=== PATIENT | female | born 1990 | race Caucasian/White ===

== ENCOUNTER 2021-01-21 14:17 | Outpatient (REF) | payer OTHER, SELFPAY ==
[2021-01-21 15:37] LABS: Amphetamine Screen Urine Not Detected (Not Detect); Barbiturates, Urine Not Detected (Not Detect); Benzodiazepines Screen Urine Not Detected (Not Detect); Cannabinoid Screen Urine Not Detected (Not Detect); Cocaine Screen Urine Not Detected (Not Detect); Opiate Screen Urine Not Detected (Not Detect); Phencyclidine Screen Urine Not Detected (Not Detect)
[2021-01-25 08:21] LABS: Codeine, Ur NEGATIVE
[2021-01-25 08:22] LABS: Hydrocodone, Ur NEGATIVE; Hydromorphone, Ur NEGATIVE; Morphine, Ur NEGATIVE; Norhydrocodone, Ur NEGATIVE; Noroxycodone, Ur NEGATIVE; Oxycodone, Ur NEGATIVE; Oxymorphone, Ur NEGATIVE
== END 2021-01-21 14:18 | disposition home or self-care (01) ==
LOC: HO.LAB 14:17
PROVIDERS: PCP Physician Assistant; Visit Provider Physician Assistant
DX: Z02.83 Encounter for blood-alcohol and blood-drug test (principal)
CPT/HCPCS: 80307; 80364; 80365

== ENCOUNTER 2021-01-28 15:37 | Outpatient (REF) | payer OTHER, SELFPAY ==
[2021-01-28 17:04] LABS: Amphetamine Screen Urine Not Detected (Not Detect); Barbiturates, Urine Not Detected (Not Detect); Benzodiazepines Screen Urine Not Detected (Not Detect); Cannabinoid Screen Urine Not Detected (Not Detect); Cocaine Screen Urine Not Detected (Not Detect); Opiate Screen Urine Not Detected (Not Detect); Phencyclidine Screen Urine Not Detected (Not Detect)
== END 2021-01-28 15:38 | disposition home or self-care (01) ==
LOC: HO.LAB 15:37
PROVIDERS: PCP Physician Assistant; Visit Provider Physician Assistant
DX: F11.20 Opioid dependence, uncomplicated (principal); L02.214 Cutaneous abscess of groin; Z13.29 Encounter for screening for other suspected endocrine disorder
CPT/HCPCS: 80307

== ENCOUNTER 2021-11-07 15:56 | Outpatient (REF) | payer OTHER, SELFPAY ==
[2021-11-07 16:21] LABS: MANUAL DIFF FLAG NO
[2021-11-07 16:52] LABS: Basophils Percent Auto 0.3 % (0-2); Eosinophils Absolute Auto 0.3 X10*3/uL (0.0-0.4); Eosinophils Percent Auto 4.6 % (0-4); Hematocrit 35.5 % (37.0-47.0); Hemoglobin 11.6 g/dl (12.0-16.0); Imm Gran Abs Auto 0.02 X10*3/uL (0.00-0.03); Imm Gran Pct Auto 0.3 % (0.0-0.4); Lymphocytes Absolute Auto 2.6 X10*3/uL (1.2-4.9); Lymphocytes Percent Auto 37.2 % (20-40); Mean Corpuscular HGB Conc 32.7 g/dl (31.0-35.0); Mean Corpuscular Hemoglobin 26.7 pg (27.0-33.0); Mean Corpuscular Volume 81.8 fL (80.0-98.0); Mean Platelet Volume 10.8 fL (9.4-12.3); Monocytes Absolute Auto 0.6 X10*3/uL (0.1-1.2); Monocytes Percent Auto 9.2 % (2-11); Neutrophils Absolute Auto 3.4 x10*3/uL (2.0-8.3); Neutrophils Percent Auto 48.4 % (45-73); Platelet Count 193 X10*3/uL (160-400); Red Blood Count 4.34 X10*6/uL (4.20-5.50); Red Cell Distribution Width 14.3 % (11.0-16.0); White Blood Count 6.9 X10*3/uL (4.8-10.8)
[2021-11-07 17:21] LABS: Anion Gap 12 (12-20); Blood Urea Nitrogen 14 mg/dL (9-16); Calcium 9.5 mg/dL (8.4-10.2); Carbon Dioxide 26 mmol/L (22-29); Chloride 104 mmol/L (96-108); Estimated Glomerular Filt Rate > 60; Glucose Random 77 mg/dL (60-115); Potassium 4.4 mmol/L (3.3-5.1); Sodium 138 mmol/L (135-145)
[2021-11-07 17:44] LABS: TSH reflex Free T4 2.09 uIU/mL (0.32-4.0)
[2021-11-07 17:50] LABS: Amphetamine Screen Urine Not Detected (Not Detect); Barbiturates, Urine Not Detected (Not Detect); Benzodiazepines Screen Urine Not Detected (Not Detect); Cannabinoid Screen Urine Not Detected (Not Detect); Cocaine Screen Urine Not Detected (Not Detect); Fentanyl, urine POSITIVE (Not Detect); Opiate Screen Urine Not Detected (Not Detect); Phencyclidine Screen Urine Not Detected (Not Detect)
== END 2021-11-07 15:57 | disposition home or self-care (01) ==
LOC: HO.LAB 15:56
PROVIDERS: PCP Physician Assistant; Visit Provider Physician Assistant
DX: Z13.29 Encounter for screening for other suspected endocrine disorder (principal); L02.214 Cutaneous abscess of groin; F11.20 Opioid dependence, uncomplicated
CPT/HCPCS: 80048; 80307; 84443; 85025

== ENCOUNTER 2021-11-24 16:55 | Outpatient (REF) | payer OTHER, SELFPAY ==
[2021-12-01 08:07] LABS: Codeine, Ur NEGATIVE; Hydrocodone, Ur NEGATIVE; Hydromorphone, Ur NEGATIVE; Morphine, Ur NEGATIVE; Norhydrocodone, Ur NEGATIVE; Noroxycodone, Ur NEGATIVE; Oxycodone, Ur NEGATIVE; Oxymorphone, Ur NEGATIVE
== END 2021-11-24 16:56 | disposition home or self-care (01) ==
LOC: HO.LAB 16:55
PROVIDERS: PCP Physician Assistant; Visit Provider Physician Assistant
DX: F11.20 Opioid dependence, uncomplicated (principal)
CPT/HCPCS: 80364; 80365

== ENCOUNTER 2021-12-01 16:49 | Outpatient (REF) | payer OTHER, SELFPAY ==
[2021-12-01 18:13] LABS: Lipase 22 U/L (8-78)
[2021-12-06 13:56] LABS: Transglutaminase Ab IgG <1.0 U/mL; Transglutaminase IgA <1.0 U/mL
[2021-12-07 07:40] LABS: Codeine, Ur NEGATIVE; Hydrocodone, Ur NEGATIVE; Hydromorphone, Ur NEGATIVE; Morphine, Ur NEGATIVE; Norhydrocodone, Ur NEGATIVE; Noroxycodone, Ur NEGATIVE; Oxycodone, Ur NEGATIVE; Oxymorphone, Ur NEGATIVE
== END 2021-12-01 16:50 | disposition home or self-care (01) ==
LOC: HO.LAB 16:49
PROVIDERS: PCP Physician Assistant; Visit Provider Physician Assistant
DX: F11.20 Opioid dependence, uncomplicated (principal); R14.0 Abdominal distension (gaseous)
CPT/HCPCS: 80364; 80365; 83690; 86364

== ENCOUNTER 2021-12-12 08:24 | Outpatient (REF) | payer OTHER, SELFPAY ==
--- NOTE | ~2021-12-12 | US_ITS ---
EXAMINATION: US ABDOMEN COMPLETE CLINICAL INFORMATION: Abdominal distention. Right upper quadrant intermittent pain. Rule out gallstones. COMPARISON: None TECHNIQUE: Real-time imaging of the abdominal viscera. FINDINGS: PANCREAS: Visualized portions of the pancreas are unremarkable. The pancreatic tail is obscured by bowel gas. ABDOMINAL AORTA: The proximal, mid, and distal segments are normal in caliber. INFERIOR VENA CAVA: Visualized portions are normal. LIVER: The liver is normal in size. The liver contour is normal. Parenchymal echogenicity is normal. No focal hepatic lesion. There is no intrahepatic biliary duct dilatation seen. GALLBLADDER: Normal. The gallbladder is physiologically distended without evidence of stones, sludge, polyps, wall thickening or pericholecystic fluid. COMMON BILE DUCT: Normal in caliber measuring 0.3 cm in diameter. RIGHT KIDNEY: Normal. No hydronephrosis. No renal calculi or focal parenchymal lesions. The kidney measures 11.8 cm in maximum dimension. LEFT KIDNEY: Normal. No hydronephrosis. No renal calculi or focal parenchymal lesions. The kidney measures 10.9 cm in maximum dimension. SPLEEN: Spleen is mildly enlarged. The spleen measures 13.2 cm in maximum dimension. FREE FLUID: None. US/US abdomen complete IMPRESSION: No cholelithiasis or evidence of acute cholecystitis. Mild splenomegaly.
== END 2021-12-12 08:25 | disposition home or self-care (01) ==
LOC: HO.US 08:24
PROVIDERS: Visit Provider Physician Assistant
DX: R10.11 Right upper quadrant pain (principal); R14.0 Abdominal distension (gaseous)
CPT/HCPCS: 76700

== ENCOUNTER 2022-01-26 16:59 | Outpatient (REF) | payer OTHER, SELFPAY ==
[2022-01-26 17:49] LABS: Hematocrit 41.6 % (37.0-47.0); Hemoglobin 13.7 g/dl (12.0-16.0); Mean Corpuscular HGB Conc 32.9 g/dl (31.0-35.0); Mean Corpuscular Volume 81.9 fL (80.0-98.0); Mean Platelet Volume 10.6 fL (9.4-12.3); Platelet Count 199 X10*3/uL (160-400); Red Blood Count 5.08 X10*6/uL (4.20-5.50); Red Cell Distribution Width 14.4 % (11.0-16.0); White Blood Count 8.8 X10*3/uL (4.8-10.8)
[2022-02-01 07:49] LABS: Codeine, Ur NEGATIVE; Hydrocodone, Ur NEGATIVE; Hydromorphone, Ur NEGATIVE; Morphine, Ur NEGATIVE; Norhydrocodone, Ur NEGATIVE; Noroxycodone, Ur NEGATIVE; Oxycodone, Ur NEGATIVE; Oxymorphone, Ur NEGATIVE
== END 2022-01-26 17:00 | disposition home or self-care (01) ==
LOC: HO.LAB 16:59
PROVIDERS: PCP Physician Assistant; Visit Provider Physician Assistant
DX: A49.02 Methicillin resistant Staphylococcus aureus infection, unspecified site (principal)
CPT/HCPCS: 80364; 80365; 85027

== ENCOUNTER 2022-03-09 17:21 | Outpatient (REF) | payer OTHER, SELFPAY | END 2022-03-09 17:22 | disposition home or self-care (01) | LOC: HO.XRAY 17:21 | PROVIDERS: PCP Physician Assistant; Visit Provider Physician Assistant | DX: Z13.89 Encounter for screening for other disorder (principal) ==

== ENCOUNTER 2022-10-19 15:18 | Emergency (ER) | payer OTHER, SELFPAY ==
--- NOTE | ~2022-10-19 | US_ITS ---
EXAMINATION: US VENOUS ULTRASOUND WITH DOPPLER LOWER EXTREMITY, LEFT CLINICAL INFORMATION: Left leg pain. COMPARISON: None available. TECHNIQUE: Ultrasound of the deep veins is performed from the hip to the calf with compression sonography and color and pulse Doppler assessment. Spectral analysis with color-flow imaging is performed. FINDINGS: There is normal venous compression and respiratory variation and augmented flow. The visualized common femoral vein, superficial femoral vein, profunda femoral vein, popliteal vein, and the trifurcation region shows no evidence of deep venous thrombosis. There is no significant popliteal fossa cyst. If the patient's symptoms persist, followup ultrasound in 5 days 7 days might be of value to exclude proximal propagation from a non-visualized calf vein. US/US venous duplex LE IMPRESSION: No DVT demonstrated in the left lower extremity.
--- NOTE | 2022-10-19 15:21 | ECG_ITS ---
Test Reason : chest pain Blood Pressure : / mmHG Vent. Rate : 086 BPM Atrial Rate : 086 BPM P-R Int : 170 ms QRS Dur : 090 ms QT Int : 374 ms P-R-T Axes : 037 -01 024 degrees QTc Int : 447 ms Normal sinus rhythm Normal ECG When compared with ECG of 18-JUL-2018 14:02, No significant change was found Referred By: Generic ED Physician Electronically Signed By:BREANNA GALINDO MD
[2022-10-19 15:28] VITALS: BP 160/110; PULSE 108; O2SAT 98
[2022-10-19 15:41] VITALS: BP 155/66; PULSE 74; RESP 16; TEMP 36.9; O2SAT 97; BMI 33.4
--- NOTE | 2022-10-19 15:49 | ED_ITS ---
HPI - Chest Pain General Chief Complaint: Chest Pain Stated Complaint: L SIDED CP PER EMS Related Data Home Medications Medication Instructions Recorded Confirmed methadone 40 mg soluble tablet 60 mg PO DAILY 12/01/21 12/29/21 Previous Rx's Medication Instructions Recorded ibuprofen 600 mg tablet 600 mg PO TID #90 tabs 08/20/21 nicotine 14 mg/24 hr daily 1 patch transdermal DAILY 28 days 11/21/21 transdermal patch #28 ea lisdexamfetamine 60 mg capsule 60 mg PO DAILY 28 days #28 caps 01/24/22 (Vyvanse) miconazole nitrate 100 mg vaginal 100 mg vaginal BEDTIME 7 days #7 ea 02/10/22 suppository (Miconazole-7) sulfamethoxazole 800 1 tab PO Q12H 10 days #20 tabs 05/09/22 mg-trimethoprim 160 mg tablet (Bactrim DS) mupirocin 2 % topical ointment 1 appl topical BID 15 days #22 09/07/22 grams sulfamethoxazole 800 1 tab PO Q12H 14 days #28 tabs 11/22/22 mg-trimethoprim 160 mg tablet (Bactrim DS) varenicline 0.5 mg tablet 0.5 mg PO .COMPLEX 7 days #11 tabs 03/14/23 varenicline 1 mg tablet 1 mg PO BID 28 days #56 tabs 03/14/23 Allergies Allergy/AdvReac Type Severity Reaction Status Date / Time Seasonal Allergies Allergy Mild Nasal Verified 10/19/22 15:45 congestion atomoxetine [From Strattera] AdvReac Intermediate headaches Verified 10/19/22 15:45 PMFSH Past Medical History Surgical History No pertinent past surgical history Family History Family History Father Hypertension Psoriasis Obese Melanoma Mother Hypertension Obese Heart disease Diabetes COPD (chronic obstructive pulmonary disease) Social History Social History Housing: House Alcohol intake: unknown Patient Tobacco Use Status: Former Tobacco user Quit Date: 2021 Tobacco use type: Cigarette e-Cigarette/Vaping Use: Never Used Second Hand Smoke Exposure: No service: No Current occupational status: employed 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 Also complains of ?fatigue and vomiting. Patient appears quite anxious but states that she has no history of anxiety. Plan for labs, EKG, chest x-ray, and ultrasound of the left lower extremity to rule out DVT Medical Decision Making Lab Data 10/19/22 16:09 10/19/22 16:09 Labs: Lab Results 10/19/22 10/19/22 10/19/22 Range/Units 15:53 16:08 16:09 WBC 7.5 (4.8-10.8) X10*3/uL RBC 4.77 (4.20-5.50) X10*6/uL Hgb 13.1 (12.0-16.0) g/dl Hct 38.4 (37.0-47.0) % MCV 80.5 (80.0-98.0) fL MCH 27.5 (27.0-33.0) pg MCHC 34.1 (31.0-35.0) g/dl RDW 14.2 (11.0-16.0) % Plt Count 219 (160-400) X10*3/uL MPV 10.5 (9.4-12.3) fL Immature Gran % (Auto) 0.1 (0.0-0.4) % Neut % (Auto) 50.1 (45-73) % Lymph % (Auto) 39.5 (20-40) % [place] % (Auto) 8.0 (2-11) % Eos % (Auto) 2.0 (0-4) % Baso % (Auto) 0.3 (0-2) % Lymph # (Auto) 3.0 (1.2-4.9) X10*3/uL [place] # (Auto) 0.6 (0.1-1.2) X10*3/uL Eos # (Auto) 0.2 (0.0-0.4) X10*3/uL Baso # (Auto) 0.0 (0.0-0.2) X10*3/uL Abs Immat Gran (auto) 0.01 (0.00-0.03) X10*3/uL Absolute Neuts (auto) 3.8 (2.0-8.3) x10*3/uL Absolute Nucleated RBC 0.000 (0.0-0.012) X10*3/uL Nucleated RBC % (auto) 0.0 (0.0-0.2) /100WBC D-Dimer High Sensitivty Cancelled Sodium 139 (135-145) mmol/L Potassium 3.8 (3.3-5.1) mmol/L Chloride 107 (96-108) mmol/L Carbon Dioxide 23 (22-29) mmol/L Anion Gap 13 (12-20) BUN 13 (9-16) mg/dL Creatinine 0.64 (0.5-1.4) mg/dL Estim Creat Clear Calc 157.3 Estimated GFR > 60 Random Glucose 87 (60-115) mg/dL Calcium 9.2 (8.4-10.2) mg/dL Magnesium 2.2 (1.6-2.6) mg/dL Total Bilirubin 0.2 (0.0-1.0) mg/dL AST 22 (5-31) U/L ALT 25 (0-31) U/L Alkaline Phosphatase 117 (39-117) U/L Troponin I High Sens < 3.5 (<3.5-17.0) ng/L Total Protein 8.2 H (6.5-8.0) g/dL Albumin 4.4 (3.5-5.0) g/dL Lipase 15 (8-78) U/L Beta HCG, Quant < 2 mIU/mL Urine Opiates Screen Not Detected (Not Detect) Urine Fentanyl Screen Not Detected (Not Detect) Ur Barbiturates Screen Not Detected (Not Detect) Ur Phencyclidine Scrn Not Detected (Not Detect) Ur Amphetamines Screen Not Detected (Not Detect) U Benzodiazepines Scrn Not Detected (Not Detect) Urine Cocaine Screen Not Detected (Not Detect) U Marijuana (THC) Screen Not Detected (Not Detect) Discharge Plan Discharge Clinical Impression: Chest pain Patient Disposition: Elopement Prescriptions: No Action ibuprofen 600 mg tablet 600 mg PO TID Qty: 90 1RF nicotine 14 mg/24 hr patch 24 hour 1 patch transdermal DAILY 28 Days Qty: 28 0RF Vyvanse 60 mg capsule 60 mg PO DAILY 28 Days Qty: 28 0RF Rx Instructions: Increased dose to 60 mg miconazole nitrate [Miconazole-7] 100 mg suppository 100 mg vaginal BEDTIME 7 Days Qty: 7 0RF sulfamethoxazole-trimethoprim [Bactrim DS] 800-160 mg tablet 1 tab PO Q12H 10 Days Qty: 20 0RF mupirocin 2 % ointment 1 appl topical BID 15 Days Qty: 22 0RF sulfamethoxazole-trimethoprim [Bactrim DS] 800-160 mg tablet 1 tab PO Q12H 14 Days Qty: 28 0RF varenicline 0.5 mg tablet 0.5 mg PO .COMPLEX 7 Days Qty: 11 0RF Rx Instructions: 0.5 mg PO; Take 0.5 mg qd x 3 days, then 0.5 mg b.i.d. x4 days varenicline 1 mg tablet 1 mg PO BID 28 Days Qty: 56 3RF methadone 40 mg tablet,soluble 60 mg PO DAILY Interventions: ED Discharge Assessment Last Done: 10/19/22 19:41 Discharge Date/Time: 10/19/22 19:41
[2022-10-19 16:13] LABS: MANUAL DIFF FLAG NO
[2022-10-19 16:17] LABS: Basophils Percent Auto 0.3 % (0-2); Eosinophils Absolute Auto 0.2 X10*3/uL (0.0-0.4); Hematocrit 38.4 % (37.0-47.0); Hemoglobin 13.1 g/dl (12.0-16.0); Imm Gran Abs Auto 0.01 X10*3/uL (0.00-0.03); Imm Gran Pct Auto 0.1 % (0.0-0.4); Lymphocytes Percent Auto 39.5 % (20-40); Mean Corpuscular HGB Conc 34.1 g/dl (31.0-35.0); Mean Corpuscular Hemoglobin 27.5 pg (27.0-33.0); Mean Corpuscular Volume 80.5 fL (80.0-98.0); Mean Platelet Volume 10.5 fL (9.4-12.3); Monocytes Absolute Auto 0.6 X10*3/uL (0.1-1.2); Neutrophils Absolute Auto 3.8 x10*3/uL (2.0-8.3); Neutrophils Percent Auto 50.1 % (45-73); Platelet Count 219 X10*3/uL (160-400); Red Blood Count 4.77 X10*6/uL (4.20-5.50); Red Cell Distribution Width 14.2 % (11.0-16.0); White Blood Count 7.5 X10*3/uL (4.8-10.8)
[2022-10-19 16:29] LABS: Amphetamine Screen Urine Not Detected (Not Detect); Barbiturates, Urine Not Detected (Not Detect); Benzodiazepines Screen Urine Not Detected (Not Detect); Cannabinoid Screen Urine Not Detected (Not Detect); Cocaine Screen Urine Not Detected (Not Detect); Fentanyl, urine Not Detected (Not Detect); Opiate Screen Urine Not Detected (Not Detect); Phencyclidine Screen Urine Not Detected (Not Detect)
[2022-10-19 16:39] LABS: Alanine Aminotransferase 25 U/L (0-31); Albumin Level 4.4 g/dL (3.5-5.0); Alkaline Phosphatase 117 U/L (39-117); Anion Gap 13 (12-20); Aspartate Amino Transferase 22 U/L (5-31); Bilirubin Total 0.2 mg/dL (0.0-1.0); Blood Urea Nitrogen 13 mg/dL (9-16); Calcium 9.2 mg/dL (8.4-10.2); Carbon Dioxide 23 mmol/L (22-29); Chloride 107 mmol/L (96-108); Creatinine Clr Calc Pharmacy 157.3; Estimated Glomerular Filt Rate > 60; Glucose Random 87 mg/dL (60-115); Lipase 15 U/L (8-78); Magnesium 2.2 mg/dL (1.6-2.6); Potassium 3.8 mmol/L (3.3-5.1); Sodium 139 mmol/L (135-145); Total Protein 8.2 g/dL (6.5-8.0)
[2022-10-19 16:56] LABS: HCG Quantitative < 2 mIU/mL; Troponin-I High Sensitivity < 3.5 ng/L (<3.5-17.0)
== END 2022-10-19 19:41 | disposition left against medical advice (07) ==
PROVIDERS: Physician Assistant; Emergency Provider Emergency Medicine
DX: R07.9 Chest pain, unspecified (principal); R06.02 Shortness of breath; M79.605 Pain in left leg; F41.9 Anxiety disorder, unspecified; F11.20 Opioid dependence, uncomplicated; Z87.891 Personal history of nicotine dependence; Z79.899 Other long term (current) drug therapy
CPT/HCPCS: 36415; 80053; 80307; 83690; 83735; 84484; 84702; 85025; 93005; 93971; 99283; 99284

== ENCOUNTER 2022-12-01 00:22 | Emergency (ER) | payer OTHER, SELFPAY ==
--- NOTE | ~2022-12-01 | CT_ITS ---
EXAMINATION: NONCONTRAST HEAD CT NONCONTRAST CERVICAL SPINE CT INDICATION INFORMATION: Fall, head injury COMPARISON: None TECHNIQUE: Separate noncontrast CT examinations of the head and cervical spine were performed. Coronal head CT images and coronal and sagittal cervical spine images were created at the technologist workstation. DLP: 1378 mGy-cm DOSE LOWERING TECHNIQUES: This CT examination was performed using dose optimization techniques as appropriate, variously including the following: - Automated exposure control - Adjustment of mA and/or kV according to patient size (this includes techniques or standardized protocols for targeted exams were dose is matched to indication/reason for exam; i.e. extremities or head) - Use of iterative reconstruction technique FINDINGS: Head: There is no evidence of acute intracranial hemorrhage or territorial infarction. No abnormal mass-effect or midline shift is seen. Peoples to white matter differentiation is well preserved. No extra-axial fluid collections are identified. The ventricles are normal in size. There is no abnormal attenuation within the brain parenchyma. The osseous structures and soft tissues are normal. The mastoid air cells and visualized portions of the paranasal sinuses are well-aerated. Cervical spine: There is anatomic alignment of the vertebral bodies and posterior elements. Vertebral body heights are maintained. Intervertebral disc spaces are preserved. No evidence of acute fracture. No prevertebral soft tissue swelling. Visualized portions of the lung apices are unremarkable. The thyroid gland is unremarkable. CT/CT head/brain wo IV con IMPRESSION: No acute findings identified in the head or cervical spine.
--- NOTE | ~2022-12-01 | CT_ITS ---
EXAMINATION: NONCONTRAST HEAD CT NONCONTRAST CERVICAL SPINE CT INDICATION INFORMATION: Fall, head injury COMPARISON: None TECHNIQUE: Separate noncontrast CT examinations of the head and cervical spine were performed. Coronal head CT images and coronal and sagittal cervical spine images were created at the technologist workstation. DLP: 1378 mGy-cm DOSE LOWERING TECHNIQUES: This CT examination was performed using dose optimization techniques as appropriate, variously including the following: - Automated exposure control - Adjustment of mA and/or kV according to patient size (this includes techniques or standardized protocols for targeted exams were dose is matched to indication/reason for exam; i.e. extremities or head) - Use of iterative reconstruction technique FINDINGS: Head: There is no evidence of acute intracranial hemorrhage or territorial infarction. No abnormal mass-effect or midline shift is seen. Peoples to white matter differentiation is well preserved. No extra-axial fluid collections are identified. The ventricles are normal in size. There is no abnormal attenuation within the brain parenchyma. The osseous structures and soft tissues are normal. The mastoid air cells and visualized portions of the paranasal sinuses are well-aerated. Cervical spine: There is anatomic alignment of the vertebral bodies and posterior elements. Vertebral body heights are maintained. Intervertebral disc spaces are preserved. No evidence of acute fracture. No prevertebral soft tissue swelling. Visualized portions of the lung apices are unremarkable. The thyroid gland is unremarkable. CT/CT cervical spine wo IV con IMPRESSION: No acute findings identified in the head or cervical spine.
[2022-12-01 00:31] VITALS: BP 150/78; PULSE 84; O2SAT 95
[2022-12-01 00:32] VITALS: BMI 27.4
[2022-12-01 00:41] VITALS: BP 136/75; PULSE 74; RESP 18; TEMP 36.6; O2SAT 96
--- NOTE | 2022-12-01 00:45 | ECG_ITS ---
Test Reason : SYNCOPE Blood Pressure : / mmHG Vent. Rate : 065 BPM Atrial Rate : 065 BPM P-R Int : 188 ms QRS Dur : 086 ms QT Int : 420 ms P-R-T Axes : 009 -05 019 degrees QTc Int : 436 ms Normal sinus rhythm Minimal voltage criteria for LVH, may be normal variant ( R in aVL ) Borderline ECG When compared with ECG of 19-OCT-2022 15:37, No significant change was found Referred By: Miguel Rayo Electronically Signed By:BREANNA GALINDO MD
--- NOTE | 2022-12-01 00:49 | ED.SYNCOPE ---
HPI - Syncope General Chief Complaint: Headache Stated Complaint: syncope Time Seen by Provider: 12/01/22 00:44 Source: patient Mode of arrival: ambulatory Limitations: no limitations History of Present Illness HPI narrative: 32-year-old female presents to the emergency department after dozing off per the boyfriend EMS states she was cutting off and then it think that she passed out she did fall and hit her head. 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 She states she has seen multiple doctors and is currently on Bactrim for this. She denies chest pain fever nausea vomiting or diarrhea. Patient did vomit once upon arrival. Patient is tearful on arrival. She is alert oriented is concerned about her headache. She states she has a history of migraines for this different. MD complaint: loss of consciousness Related Data Home Medications Medication Instructions Recorded Confirmed methadone 40 mg soluble tablet 60 mg PO DAILY 12/01/21 12/29/21 Previous Rx's Medication Instructions Recorded ibuprofen 600 mg tablet 600 mg PO TID #90 tabs 08/20/21 nicotine 14 mg/24 hr daily 1 patch transdermal DAILY 28 days 11/21/21 transdermal patch #28 ea lisdexamfetamine 60 mg capsule 60 mg PO DAILY 28 days #28 caps 01/24/22 (Vyvanse) miconazole nitrate 100 mg vaginal 100 mg vaginal BEDTIME 7 days #7 ea 02/10/22 suppository (Miconazole-7) sulfamethoxazole 800 1 tab PO Q12H 10 days #20 tabs 05/09/22 mg-trimethoprim 160 mg tablet (Bactrim DS) mupirocin 2 % topical ointment 1 appl topical BID 15 days #22 09/07/22 grams sulfamethoxazole 800 1 tab PO Q12H 14 days #28 tabs 11/22/22 mg-trimethoprim 160 mg tablet (Bactrim DS) Allergies Allergy/AdvReac Type Severity Reaction Status Date / Time Seasonal Allergies Allergy Mild Nasal Verified 10/19/22 15:45 congestion atomoxetine [From Strattera] AdvReac Intermediate headaches Verified 10/19/22 15:45 Review of Systems Review of Systems: Review of systems: General: Patient denies any fever chills recent illness or falls Musculoskeletal: Denies back pain or body aches or other injuries HEENT: Headache denies, runny nose, ear pain Respiratory: denies shortness of breath, cough Cardiovascular: no chest pain or palpitations : denies dysuria, frequency Abdomen: no nausea vomiting denies abdominal pain Extremities: no swelling, no pain Skin: no diaphoresis Yes all other systems are reviewed and are negative PMFSH Past Medical History Surgical History No pertinent past surgical history Family History Family History Father Hypertension Psoriasis Obese Melanoma Mother Hypertension Obese Heart disease Diabetes COPD (chronic obstructive pulmonary disease) Social History Social History Housing: House Alcohol intake: unknown Patient Tobacco Use Status: Former Tobacco user Quit Date: 2021 Tobacco use type: Cigarette e-Cigarette/Vaping Use: Never Used Second Hand Smoke Exposure: No Use of substances other than those prescribed or required for medical reasons: Refusing to respond Advance Directives: No Advance Directives Information Provided: No Patient : No service: No Current occupational status: employed 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 Patient is alert and oriented to person place and time. Patient has no dysphagia or dysarthia, denies good vision in all four vision [place] no nystagmus on exam, good strength to upper and lower extremities with normal reflexes to brachioradialis, wrist, patella and achilles. Negative romberg, good finger to nose and heel to mercado. General: Well-appearing well-nourished in no signs of distress HEENT: Normocephalic atraumatic Neck: No signs of JVD, no masses no tenderness or lymphadenopathy Cardiovascular: Regular rate and rhythm Respiratory: Clear to auscultation bilaterally Abdomen: Soft nontender no masses Extremities: Normal pedal pulses no signs of edema Skin: Multiple healing abrasions verses abscesses to bilateral arms Dry warm no rashes Back: No tenderness full ROM Medical Decision Making Medical Decision Making [facility] Narrative: Since patient is on Bactrim she had syncopized is fairly young I will check her kidney function I patient for a CT scan head neck. Made sure if this patient just fell asleep as the story was that she was nodding off. She is alert oriented here is able ambulate to a CT scan and back to her room 0145 CT head and neck are negative. Patient was explained the results. She now relates a story of being sleepy for months. 3 years of abdominal bloating and constipation. She has a benign abdomen. Continues to have normal vitals but is very anxious. We have had a hard time getting blood work. We will continue with labs. 0234 Labs are all okay I will discharge home. Differential Diagnosis Differential Diagnoses: The differential diagnosis associated with the presentation includes Syncope versus opiate use versus dehydration verses Bactrim reaction to her kidneys. Admission/Observation Consideration of admission/observation: Escalation of care including admission/observation considered Lab Data [facility] Lab Attestation statement: I reviewed the patient's lab results. 12/01/22 01:47 12/01/22 01:47 Labs: Lab Results 12/01/22 12/01/22 Range/Units 01:47 01:47 WBC 11.2 H (4.8-10.8) X10*3/uL RBC 4.45 (4.20-5.50) X10*6/uL Hgb 12.0 (12.0-16.0) g/dl Hct 35.8 L (37.0-47.0) % MCV 80.4 (80.0-98.0) fL MCH 27.0 (27.0-33.0) pg MCHC 33.5 (31.0-35.0) g/dl RDW 13.5 (11.0-16.0) % Plt Count 277 D (160-400) X10*3/uL MPV 9.7 (9.4-12.3) fL Immature Gran % (Auto) 0.3 (0.0-0.4) % Neut % (Auto) 75.8 H (45-73) % Lymph % (Auto) 17.2 L (20-40) % [place] % (Auto) 5.7 (2-11) % Eos % (Auto) 0.6 (0-4) % Baso % (Auto) 0.4 (0-2) % Lymph # (Auto) 1.9 (1.2-4.9) X10*3/uL [place] # (Auto) 0.6 (0.1-1.2) X10*3/uL Eos # (Auto) 0.1 (0.0-0.4) X10*3/uL Baso # (Auto) 0.0 (0.0-0.2) X10*3/uL Abs Immat Gran (auto) 0.03 (0.00-0.03) X10*3/uL Absolute Neuts (auto) 8.5 H (2.0-8.3) x10*3/uL Absolute Nucleated RBC 0.000 (0.0-0.012) X10*3/uL Nucleated RBC % (auto) 0.0 (0.0-0.2) /100WBC Sodium 136 (135-145) mmol/L Potassium 4.3 (3.3-5.1) mmol/L Chloride 103 (96-108) mmol/L Carbon Dioxide 24 (22-29) mmol/L Anion Gap 13 (12-20) BUN 11 (9-16) mg/dL Creatinine 0.84 (0.5-1.4) mg/dL Estim Creat Clear Calc 108.7 Estimated GFR > 60 Random Glucose 101 (60-115) mg/dL Calcium 9.1 (8.4-10.2) mg/dL Total Bilirubin 0.3 (0.0-1.0) mg/dL Direct Bilirubin 0.1 (0.0-0.5) mg/dL AST 20 (5-31) U/L ALT 21 (0-31) U/L Alkaline Phosphatase 93 (39-117) U/L Total Protein 7.6 (6.5-8.0) g/dL Albumin 4.4 (3.5-5.0) g/dL Lipase 10 (8-78) U/L Independent Interpretation I performed an independent interpretation of an: EKG and CT Scan Interpretation: Rate 65 nsr normal intervals no signs of ischemia External Record Review External record reviewed: Inpatient record She was here a few weeks ago for chest pain she has no chest pain at this time she did not complete her workup and left against medical advice. Discharge Plan Discharge Clinical Impression: Headache, Syncope, Head injury, Fall, Postprandial bloating, Daytime somnolence Patient Disposition: Home, Self-Care Instructions: Syncope (DC), Head Injury (ED), Acute Headache (DC), Fall Prevention (ED) Additional Instructions: You were seen in the ER after a fall and head injury. You had a CT and labs done which were all normal Please call to follow up with your doctor. Prescriptions: No Action ibuprofen 600 mg tablet 600 mg PO TID Qty: 90 1RF nicotine 14 mg/24 hr patch 24 hour 1 patch transdermal DAILY 28 Days Qty: 28 0RF Vyvanse 60 mg capsule 60 mg PO DAILY 28 Days Qty: 28 0RF Rx Instructions: Increased dose to 60 mg miconazole nitrate [Miconazole-7] 100 mg suppository 100 mg vaginal BEDTIME 7 Days Qty: 7 0RF sulfamethoxazole-trimethoprim [Bactrim DS] 800-160 mg tablet 1 tab PO Q12H 10 Days Qty: 20 0RF mupirocin 2 % ointment 1 appl topical BID 15 Days Qty: 22 0RF sulfamethoxazole-trimethoprim [Bactrim DS] 800-160 mg tablet 1 tab PO Q12H 14 Days Qty: 28 0RF methadone 40 mg tablet,soluble 60 mg PO DAILY
[2022-12-01 01:53] LABS: Basophils Percent Auto 0.4 % (0-2); Eosinophils Absolute Auto 0.1 X10*3/uL (0.0-0.4); Eosinophils Percent Auto 0.6 % (0-4); Hematocrit 35.8 % (37.0-47.0); Imm Gran Abs Auto 0.03 X10*3/uL (0.00-0.03); Imm Gran Pct Auto 0.3 % (0.0-0.4); Lymphocytes Absolute Auto 1.9 X10*3/uL (1.2-4.9); Lymphocytes Percent Auto 17.2 % (20-40); MANUAL DIFF FLAG NO; Mean Corpuscular HGB Conc 33.5 g/dl (31.0-35.0); Mean Corpuscular Volume 80.4 fL (80.0-98.0); Mean Platelet Volume 9.7 fL (9.4-12.3); Monocytes Absolute Auto 0.6 X10*3/uL (0.1-1.2); Monocytes Percent Auto 5.7 % (2-11); Neutrophils Absolute Auto 8.5 x10*3/uL (2.0-8.3); Neutrophils Percent Auto 75.8 % (45-73); Platelet Count 277 X10*3/uL (160-400); Red Blood Count 4.45 X10*6/uL (4.20-5.50); Red Cell Distribution Width 13.5 % (11.0-16.0); White Blood Count 11.2 X10*3/uL (4.8-10.8)
[2022-12-01 02:00] VITALS: BP 136/76; PULSE 72; RESP 18; TEMP 36.4; O2SAT 96
[2022-12-01 02:23] LABS: Alanine Aminotransferase 21 U/L (0-31); Albumin Level 4.4 g/dL (3.5-5.0); Alkaline Phosphatase 93 U/L (39-117); Anion Gap 13 (12-20); Aspartate Amino Transferase 20 U/L (5-31); Bilirubin Direct 0.1 mg/dL (0.0-0.5); Bilirubin Total 0.3 mg/dL (0.0-1.0); Blood Urea Nitrogen 11 mg/dL (9-16); Calcium 9.1 mg/dL (8.4-10.2); Carbon Dioxide 24 mmol/L (22-29); Chloride 103 mmol/L (96-108); Creatinine Clr Calc Pharmacy 108.7; Estimated Glomerular Filt Rate > 60; Glucose Random 101 mg/dL (60-115); Lipase 10 U/L (8-78); Potassium 4.3 mmol/L (3.3-5.1); Sodium 136 mmol/L (135-145); Total Protein 7.6 g/dL (6.5-8.0)
== END 2022-12-01 02:44 | disposition home or self-care (01) ==
PROVIDERS: Emergency Provider Student in an Organized Health Care Education/Training Program; PCP Physician Assistant
DX: R55 Syncope and collapse (principal); R51.9 Headache, unspecified; R40.0 Somnolence; M54.2 Cervicalgia; Z87.891 Personal history of nicotine dependence
CPT/HCPCS: 36415; 70450; 72125; 80048; 80076; 83690; 85025; 93005; 99284

== ENCOUNTER 2023-11-12 11:59 | Outpatient (AMB) | payer OTHER, SELFPAY ==
[2023-11-12 12:42] VITALS: BP 130/80; PULSE 79; TEMP 36.4; O2SAT 98
--- NOTE | 2023-11-12 12:42 | MHC.OFFWIV ---
Intake Vital Signs 11/12/23 12:42 Height 5 ft 8 in BP 130/80 Blood Pressure Location Lt brachial Position Sitting Pulse 79 Pulse Source Pulse Oximeter Temp 97.5 F Temp Source Temporal Artery Scan Pulse Oximetry (%) 98 Oxygen Delivery Method Room Air Intake Visit Reasons: EP eyebrows threaded infection LFT eye Intake Note: pt is here today for eyebrows threaded infection lft eye started 1 week ago Patient Tobacco Use Status: Former Tobacco user Quit Date: 2021 Allergies Seasonal Allergies Allergy (Mild, Verified 11/12/23 13:13) Nasal congestion atomoxetine [From Strattera] Adverse Reaction (Intermediate, Verified 11/12/23 13:13) headaches Do you need a note to return to daycare/school/sports/work: Yes HPI HPI Comments History of Present Illness Details 33 y/o female patient who presents to [facility] with c/o large abscess left upper eyelid. Pt had her eyebrows threaded about 1 week ago, believes this caused the infection. Denies vision changes at this time. Denies fevers, chills, vomiting but reports nausea. Pt thinks she might be , asking Urine HCG today. Pt has been trying to conceive. 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 Filled yellow fluid and draining. ) Conjunctivae: conjunctivae normal Corneas: corneas normal Pupils: Equal, round and reactive pupils present EOM: EOMs intact bilaterally Direct Ophthalmoscopy: normal light reflex Neuro General: patient oriented x3 Cranial nerves: Yes Equal, round and reactive pupils present Assessment & Plan Assessment & Plan (1) Abscess of skin and subcutaneous tissue: Code(s): L02.91 - Cutaneous abscess, unspecified Qualifiers: Site of cutaneous abscess: face Qualified Code(s): L02.01 - Cutaneous abscess of face Plan: - Warm compress - Acetaminophen for pain relief. - C/o Nausea and questioning . Urine HCG: negative today. - Informed Pt that studies have shown that Bactrim; Has an increased risk of congenital malformations (neural tube defects, cardiovascular malformations, urinary tract defects, oral clefts, club foot) following maternal use of sulfamethoxazole and trimethoprim during has been observed. Trimethoprim interferes with folic acid metabolism, decreasing maternal levels. Pt reported understanding. Medications: New sulfamethoxazole-trimethoprim 800-160 mg (Bactrim DS) 1 tab PO Q12H 14 tabs 0RF 7 days L02.01 - Cutaneous abscess of face ondansetron 8 mg PO Q8H 30 tabs 0RF L02.01 - Cutaneous abscess of face acetaminophen 1,000 mg (2 x 500 mg) PO Q6H PRN 30 caps 0RF fever L02.01 - Cutaneous abscess of face Coding Level of Care Code Est Pt Level 3 (84874) Diagnoses Cutaneous abscess of face L02.01 Site of cutaneous abscess: face Time Spent (min) 15
== END 2023-11-12 13:43 | disposition home or self-care (01) ==
PROVIDERS: PCP Physician Assistant; Visit Provider Nurse Practitioner Family
DX: L02.01 Cutaneous abscess of face (principal)
CPT/HCPCS: 99213

== ENCOUNTER 2024-07-03 10:07 | Outpatient (AMB) | payer OTHER, SELFPAY ==
--- NOTE | 2024-07-03 10:30 | MHC.OFFWIV ---
Intake Vital Signs 07/03/24 10:47 Height 5 ft 8 in Weight 300 lb BMI 45.6 BP 120/80 Blood Pressure Location Lt brachial Position Sitting Pulse 89 Pulse Source Pulse Oximeter Pulse Oximetry (%) 98 Oxygen Delivery Method Room Air Intake Visit Reasons: EP Mouth pain, swelling on RT side of face/neck Intake Note: Patient here for mouth pain and swelling that started a few days ago. She also been having stomach bloating, has not had regular BM's. Patient Tobacco Use Status: Former Tobacco user Allergies Seasonal Allergies Allergy (Mild, Verified 07/03/24 10:49) Nasal congestion atomoxetine [From Strattera] Adverse Reaction (Intermediate, Verified 07/03/24 10:49) headaches Do you need a note to return to daycare/school/sports/work: No HPI HPI Comments History of Present Illness Details The patient is a 33-year-old female presenting with concerns primarily regarding dental pain and potential infection due to two broken teeth on the right side of her mouth. The dental issues began after starting methadone, during which the patient reported detrimental effects on her dental health, leading to broken and possibly infected teeth. She has been sober and off methadone for about six months, a challenging process she describes as strenuous. Additionally, the patient reports unexplained rapid weight fluctuations, with her clothing sizes changing dramatically (from size 18 to 14) within short periods. This fluctuation is accompanied by abdominal distension, described as fluctuating from appearing to normal. She attributes these changes to stress from taking care of her fianc?, who was hospitalized, and believes cortisol levels may be a contributing factor. The patient and found some left over, previously prescribed Bactrim which she started taking 2 days ago to manage the dental infection and she states her pain has improved but she ran out of the medication. She tells me she did have an appointment with the primary care provider at [facility] and waited 8 months for the appointment and then the day of the appointment, they canceled on her and rescheduled her for 5 months out. She tells me she is trying to find another primary care doctor but it is difficult. General: Cooperative, healthy appearing, comfortable, no acute distress and well developed Orientation: Patient oriented x3 Limitations: No limitations Head: Normal to inspection Ears: Hearing grossly normal bilaterally Mouth: Edema on the right upper aspect of the mouth with noticeable swelling in the upper right cheek, Nose: Normal external nose present Face and sinus: Normal facial exam Eyes: Appearance normal, both eyes and all related structures Neck: Normal visual inspection and Yes full ROM GI: Normal to inspection. Soft to palpation and nontender Skin: No rashes or lesions noted Neuro: Patient oriented x3 Extremities: Normal to inspection [facility] Surgical History No pertinent past surgical history Family History Father Hypertension Psoriasis Obese Melanoma Mother Hypertension Obese Heart disease Diabetes COPD (chronic obstructive pulmonary disease) Social History Housing: House Alcohol intake: unknown Patient Tobacco Use Status: Former Tobacco user Tobacco use type: Cigarette e-Cigarette/Vaping Use: Never Used Second Hand Smoke Exposure: No service: No Current occupational status: employed Current occupation: [employer] Current occupational exposures/hazards: No Cognitive needs: No Hearing needs: No Vision needs: Yes Review of Systems Const All systems reviewed & are unremarkable except as noted in HPI and below Physical Exam Vital Signs: Last Vital Signs Pulse 89 07/03/24 10:47 BP 120/80 07/03/24 10:47 Pulse Ox 98 07/03/24 10:47 Oxygen Delivery Method Room Air 07/03/24 10:47 BMI result Body Mass Index 45.6 Assessment & Plan Assessment & Plan (1) Dental infection: Code(s): K04.7 - Periapical abscess without sinus Plan: 1. Dental Infection: Sent 5 more days of Bactrim as it appears to be working well for the patient. Advised the patient to seek urgent dental care for further evaluation and potential treatment of the broken and infected teeth. ? 2. Rapid Weight Fluctuations and Abdominal Distension: Called [facility] insurance office supervisor and was able to obtain patient an appointment to reestablish care next week. Gave the patient the information and recommended she show up 15 minutes early to the appointment with a copy of her insurance card and her identification. Encouraged she go to the appointent for workup for her abdominal symptoms and rapid weight changes. ? 3. Past Methadone Use: - Advise consulting with a primary care provider for potential further evaluation on the long-term effects and management of symptoms resulting from past methadone use. Patient was informed and verbally consented to the use of an ambient scribe for clinic note documentation during this visit. Medications: New sulfamethoxazole-trimethoprim 800-160 mg (Bactrim DS) 1 tab PO Q12H 10 tabs 0RF Coding Level of Care Code Est Pt Level 3 (66080) Diagnoses Dental infection K04.7
[2024-07-03 10:47] VITALS: BP 120/80; PULSE 89; O2SAT 98; BMI 45.6
== END 2024-07-03 11:30 | disposition home or self-care (01) ==
PROVIDERS: PCP Physician Assistant; Visit Provider Physician Assistant
DX: K04.7 Periapical abscess without sinus (principal)

== ENCOUNTER 2024-07-09 09:45 | Outpatient (AMB) | payer OTHER, SELFPAY ==
[2024-07-09 09:48] VITALS: BP 110/80; PULSE 92; O2SAT 96; BMI 44.9
--- NOTE | 2024-07-09 09:48 | A.OFFPC_ITS ---
Vital Signs 07/09/24 09:48 Height 5 ft 8 in Weight 295 lb 8 oz BMI 44.9 BP 110/80 Blood Pressure Location Lt brachial Position Sitting Pulse 92 Pulse Source Pulse Oximeter Pulse Oximetry (%) 96 Oxygen Delivery Method Room Air Intake Visit Reasons: GI issues Sports Announcer Required: No Accompanied by: Self / Same As Patient Allergies Seasonal Allergies Allergy (Mild, Verified 07/09/24 10:00) Nasal congestion atomoxetine [From Strattera] Adverse Reaction (Intermediate, Verified 07/09/24 10:00) headaches Medication List - Last Reconciled 07/09/24 by Rachael Painting PA-C sulfamethoxazole-trimethoprim 800-160 mg (Bactrim DS) 1 tab PO Q12H Tobacco use date assessed: 07/09/24 Dental Screening Dental Screen Date: 07/09/24 Did you have a dental visit in the last 12 months?: No Did you have a dental problem in the last 6 months where you did not have access to dental care?: No Was dental information given to patient?: No HPI GI issues HPI Details 33-year-old female with past medical his tory of depression, obesity, ADD, opiate dependence last seen by [facility] December 2021 coming in for acute problem. In review of the notes patient was seen in walk-in clinic 07/03/2024 for dental pain given Bactrim and advised to follow up with dentist. Today she tells us she continues to have jaw swelling and pain which has significantly improved but has been persistent. She is working on scheduling [facility] a dentist. Patient states she has had several back surgeries due to a back abscess several years ago. As a result she has occasional numbness and tingling down the legs and along the right side of her labia. Since her surgery she has been having loss of urine with coughing laughing or jumping. She also mentioned she has been having stomach issues and we will have bloating often and she feels constipated as well. She does have a bowel movement several times per day that are usually bright yellow and thin. She is also looking for something to help with weight loss. 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 1. Little interest or pleasure in doing things: not at all 2. Feeling down, depressed, or hopeless: not at all 3. Trouble falling or staying asleep, or sleeping too much: not at all 4. Feeling tired or having little energy: not at all 5. Poor appetite or overeating: not at all 6. Feeling bad about yourself - or that you are a failure or have let yourself or your family down: not at all 7. Trouble concentrating on things, such as reading the newspaper or watching television: not at all 8. Moving or speaking so slowly that other people could have noticed. Or the opposite - being so fidgety or restless that you have been moving around a lot more than usual: not at all 9. Thoughts that you would be better off or of hurting yourself in some way: not at all Total score: 0 Depression Screening Interpretation: Negative Depression Screening Done: Yes Source: Developed by Drs. Mark Sánchez, Olivia Shaw, Jonathan Chiu and colleagues, with an educational sadie from [employer]. Thrive Questionnaire Date Thrive assessed: 07/09/24 I am a: Patient What is your living situation today?: I have a steady place to live Within the past 12 months, did the food you bought not last and you didn't have the money to get more?: Never true Within the past 12 months, did you worry whether your food would run out before you got money to buy more?: Never true Do you have trouble paying for medicines?: No Do you have trouble getting transportation to medical appointments?: No Do you have trouble paying your heating and electricity bill?: No Do you have trouble taking care of your child, family member or friend?: No Do you have trouble with day-to-day activities such as bathing, preparing meals, shopping, managing finances, etc.?: No Are you currently unemployed and looking for a job?: No Are you interested in more education?: No Please select the resources that you would like help with: None Currently or been in a relationship where the following occur: No concerns reported THRIVE Score: 0 AUDIT C Alcohol Use Questionnaire (AUDIT-C) 1. How often do you have a drink containing alcohol?: Never Total Score: 0 JACKI-7 AMB Questionnaire JACKI-7 Date JACKI - 7 assessed: 07/09/24 Feeling nervous, anxious, or on edge: 0 = Not at all Not being able to stop or control worryin = Not at all Worrying too much about different things: 0 = Not at all Trouble relaxin = Not at all Being so restless that it is hard to sit still: 0 = Not at all Becoming easily annoyed or irritable: 0 = Not at all Feeling afraid as if something awful might happen: 0 = Not at all Total JACKI-7 score (0-4 normal; 5-9 mild; 10-14 moderate; 15-21 severe): 0 Source: Developed by Drs. Mark Sánchez, Olivia Shaw, Jonathan Chiu and colleagues, with an educational sadie from [employer]. Review of Systems Const Denies body aches, Denies chills, Denies fever(s), Denies headache(s) and Denies poor appetite Eyes Reports no additional complaints ENT Denies dizziness and Denies headache(s) Card Denies chest pain, Denies syncope, Denies edema, Denies irregular heart rhythm, Denies lightheadedness and Denies dyspnea Resp Denies cough and Denies dyspnea GI Reports as per HPI, Reports bloating, Denies constipation, Denies diarrhea, Denies nausea and Denies vomiting Reports no additional complaints Musc Reports no additional complaints and Denies abnormal gait Skin/Breast Reports system reviewed and no additional complaints, except as documented Neuro Denies abnormal gait, Denies dizziness, Denies syncope and Denies headache(s) Psych Reports no additional complaints Physical exam (Primary Care) Vital Signs: Last Vital Signs Pulse 92 12/11/24 09:48 BP 110/80 07/09/24 09:48 Pulse Ox 96 07/09/24 09:48 Oxygen Delivery Method Room Air 07/09/24 09:48 BMI result Body Mass Index 44.9 Tobacco/Smoking Status: Tobacco use Status Tobacco use date assessed 07/09/24 07/09/24 09:55 Patient Tobacco Use Status Former Tobacco user 07/09/24 09:55 Tobacco use type Cigarette 07/09/24 09:55 e-Cigarette/Vaping Use Never Used 07/09/24 09:55 PHQ-9: PHQ-9 Score PHQ-9: Total score 0 07/09/24 11:19 Depression Screening Interpretation: Negative Thrive Assessment: Date of Thrive Assessment Date Thrive assessed 07/09/24 07/09/24 09:55 Currently or been in a relationship where the following occur: No concerns reported Const General: cooperative, healthy appearing, comfortable and no acute distress Orientation/consciousness: patient oriented x3 HENMT Head: Yes normocephalic Ears: hearing grossly normal bilaterally General nose exam: Normal external nose present Eyes General: appearance normal, both eyes and all related structures Conjunctivae: conjunctivae normal Neck Neck: Yes full ROM and Yes no lymphadenopathy Resp Effort & Inspection: normal respiratory effort Auscultation: clear to auscultation bilaterally, no crackles, no rales, no rhonchi and no wheezes Cardio Rate: regular rate Rhythm: regular rhythm GI Palpation (GI): Soft to palpation, Tenderness to palpation present (GI) in the epigastrum and suprapubicly, no guarding, not rigid and no masses Skin General skin exam: no rashes or lesions noted Neuro General: patient oriented x3 Gait exam (Neuro): Normal gait present Extrem General: Yes normal to inspection, Yes full ROM and No edema Psych Affect: normal affect Attitude: cooperative Insight: Good insight present (Psych) Judgement: Good judgement present (Psych) Coding Level of Care Code Est Pt Level 4 (73714) Diagnoses Morbid obesity with BMI of 40.0-44.9, adult E66.01; Z68.41 Change in stool caliber R19.5 Dental infection K04.7 Attention deficit hyperactivity disorder (ADHD), predominantly inattentive type F90.0 Attention deficit-hyperactivity disorder type: predominantly inattentive Hyperactivity presence: present Abdominal bloating R14.0 Stress incontinence N39.3 Assessment & Plan Assessment & Plan (1) Morbid obesity with BMI of 40.0-44.9, adult: Code(s): E66.01 - Morbid (severe) obesity due to excess calories; Z68.41 - Body mass index [BMI] 40.0-44.9, adult Category: Medical Plan: Healthy diet and regular exercise is encouraged. We will trial Wegovy at this time and referral placed to nutrition. Advised patient to blood work done after 1 month of therapy to monitor for liver and kidney function (2) Change in stool caliber: Code(s): R19.5 - Other fecal abnormalities Category: Medical Plan: Patient reporting change in stool caliber and now having very thin stools which is new over the last year. Ordered for blood work and we will refer to GI for further evaluation. Denies any blood in the stool but does state the stools are yellow and discolored (3) Dental infection: Code(s): K04.7 - Periapical abscess without sinus Category: Medical Plan: We will extend Bactrim for an additional 5 days and discussed with the patient that she needs to reach out to the dentist urgently. Very mild swelling of the right cheek area and very mild tenderness to palpation over the right side of th e maxilla 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 counselor Code(s): F98.8 - Other specified behavioral and emotional disorders with onset usually occurring in childhood and adolescence Category: Medical Qualifiers: Attention deficit-hyperactivity disorder type: predominantly inattentive Hyperactivity presence: present Qualified Code(s): F90.0 - Attention-deficit hyperactivity disorder, predominantly inattentive type Plan: Currently following with counselor (5) Abdominal bloating: Code(s): R14.0 - Abdominal distension (gaseous) Category: Medical Plan: Ordered for blood work to look for underlying cause and we will refer to GI for further workup. (6) Stress incontinence: Code(s): N39.3 - Stress incontinence (female) (male) Category: Medical Plan: Discussed pelvic floor exercises and patient was given pamphlet. If incontinence does not improve we will refer to pelvic floor specialists and can consider uro milk processing worker referral. Ordered for urinalysis as well. Plan Ordered for updated blood work and we will follow up for annual exam in a few months. This note was constructed using voice recognition software. While every effort has been made to ensure accuracy and salvage inspector, still areas may have been included sometimes these areas may affect the content or meeting of the given symptoms. Total time spent caring for the patient today was 30 minutes. This includes time spent before the visit reviewing the chart, time spent during the visit, and time spent after the visit and documentation. Orders: Orders Complete Blood Count Auto Diff Today R14.0 - Abdominal distension (gaseous), Z00.00 - Encounter for general adult medical examination without abnormal findings Free T4 (Free Thyroxine) Today R14.0 - Abdominal distension (gaseous), Z00.00 - Encounter for general adult medical examination without abnormal findings Vitamin B12 and Folate Today R14.0 - Abdominal distension (gaseous), Z00.00 - Encounter for general adult medical examination without abnormal findings Comprehensive Met. Panel Today R14.0 - Abdominal distension (gaseous), Z00.00 - Encounter for general adult medical examination without abnormal findings Lipid Panel Today E78.00 - Pure hypercholesterolemia, unspecified, R14.0 - Abdominal distension (gaseous) TSH reflex Free T4 Today R14.0 - Abdominal distension (gaseous), Z00.00 - Encounter for general adult medical examination without abnormal findings Vitamin D 25-OH Total Today R14.0 - Abdominal distension (gaseous), Z00.00 - Encounter for general adult medical examination without abnormal findings Hemoglobin A1c Today E11.65 - Type 2 diabetes mellitus with hyperglycemia, R14.0 - Abdominal distension (gaseous) Comprehensive Met. Panel 1 Month E66.01 - Morbid (severe) obesity due to excess calories, Z68.41 - Body mass index [BMI] 40.0-44.9, adult UA CC w/rflx Micro + Cult Today R35.89 - Other polyuria Referrals Gastroenterology Referral R14.0 - Abdominal distension (gaseous), R19.5 - Other fecal abnormalities Fruit Preserver Nutrition Referral E66.09 - Other obesity due to excess calories, R14.0 - Abdominal distension (gaseous), Z68.39 - Body mass index [BMI] 39.0- 39.9, adult Medications: New semaglutide (weight loss) (Wegovy) administer weeks 1 through 4 of therapy 0.25 mg (0.5 mL) subcut QWEEK 2 mL 0RF E66.01 - Morbid (severe) obesity due to excess calories, Z68.41 - Body mass index [BMI] 40.0-44.9, adult Refilled sulfamethoxazole-trimethoprim 800-160 mg (Bactrim DS) 1 tab PO Q12H 10 tabs 1RF
== END 2024-07-09 10:23 | disposition home or self-care (01) ==
PROVIDERS: PCP Physician Assistant
DX: E66.01 Morbid (severe) obesity due to excess calories (principal); Z68.41 Body mass index [BMI] 40.0-44.9, adult; R19.5 Other fecal abnormalities; K04.7 Periapical abscess without sinus; F90.0 Attention-deficit hyperactivity disorder, predominantly inattentive type; R14.0 Abdominal distension (gaseous); N39.3 Stress incontinence (female) (male)

== ENCOUNTER 2024-08-06 08:44 | Outpatient (REF) | payer OTHER, SELFPAY ==
[2024-08-06 09:04] LABS: MANUAL DIFF FLAG NO
[2024-08-06 10:06] LABS: Basophils Percent Auto 0.4 % (0-2); Eosinophils Absolute Auto 0.1 X10*3/uL (0.0-0.4); Eosinophils Percent Auto 1.2 % (0-4); Hematocrit 37.2 % (37.0-47.0); Hemoglobin 12.4 g/dl (12.0-16.0); Imm Gran Abs Auto 0.05 X10*3/uL (0.00-0.03); Imm Gran Pct Auto 0.7 % (0.0-0.4); Lymphocytes Absolute Auto 1.8 X10*3/uL (1.2-4.9); Lymphocytes Percent Auto 22.9 % (20-40); Mean Corpuscular HGB Conc 33.3 g/dl (31.0-35.0); Mean Corpuscular Hemoglobin 28.6 pg (27.0-33.0); Mean Corpuscular Volume 85.7 fL (80.0-98.0); Mean Platelet Volume 10.6 fL (9.4-12.3); Monocytes Absolute Auto 0.5 X10*3/uL (0.1-1.2); Monocytes Percent Auto 6.4 % (2-11); Neutrophils Absolute Auto 5.3 x10*3/uL (2.0-8.3); Neutrophils Percent Auto 68.4 % (45-73); Platelet Count 274 X10*3/uL (160-400); Red Blood Count 4.34 X10*6/uL (4.20-5.50); Red Cell Distribution Width 12.5 % (11.0-16.0); White Blood Count 7.7 X10*3/uL (4.8-10.8)
[2024-08-06 10:25] LABS: Estimated Average Glucose 103 mg/dL; Hemoglobin A1c % 5.2 % (<6.0)
[2024-08-06 10:37] LABS: Alanine Aminotransferase 31 U/L (0-31); Albumin Level 4.4 g/dL (3.5-5.0); Alkaline Phosphatase 83 U/L (39-117); Anion Gap 11 (12-20); Aspartate Amino Transferase 24 U/L (5-31); Bilirubin Total 0.5 mg/dL (0.0-1.0); Blood Urea Nitrogen 11 mg/dL (9-16); Calcium 9.4 mg/dL (8.4-10.2); Carbon Dioxide 24 mmol/L (22-29); Chloride 109 mmol/L (96-108); Cholesterol 183 mg/dL (<200); Estimated Glomerular Filt Rate > 60; Glucose Random 98 mg/dL (60-115); HDL Cholesterol 33 mg/dL (>40); LDL Cholesterol Calculated 129 mg/dL (<100); Potassium 4.3 mmol/L (3.3-5.1); Sodium 140 mmol/L (135-145); Total Protein 7.8 g/dL (6.5-8.0); Triglycerides 107 mg/dL (<150)
[2024-08-06 10:58] LABS: Free T4 (Free Thyroxine) 1.09 ng/dL (0.71-1.85); TSH reflex Free T4 1.19 uIU/mL (0.32-4.0); Vitamin D 25-OH Total 22.2 ng/mL (>30)
[2024-08-06 11:04] LABS: Folate 9.2 ng/mL (> or = 4.0); Vitamin B12 601 pg/mL (200-900)
[2024-08-06 11:04] LABS: Appearance Urine Clear; Color Urine Yellow; Glucose Urine UA Negative (Negative); Leukocyte Esterase Urine Trace (Negative); Nitrite Urine Negative (Negative); PH 7.5 (5.0-9.0); Specific Gravity - Urine >= 1.030 (1.005-1.025); UMIC TRIGGER UACC YES; Urine Blood Moderate (2+) (Negative); Urine Ketones Negative (Negative); Urine Protein Trace mg/dL (Neg-Trace)
[2024-08-06 11:09] LABS: Bacteria Urine None Seen (None Seen); Hyaline Casts Urine 0-2 /LPF (0-2); RBC Urine >20 /HPF (0-2); WBC Urine 0-5 /HPF (0-5)
== END 2024-08-06 08:45 | disposition home or self-care (01) ==
LOC: HO.LAB 08:44
PROVIDERS: PCP Physician Assistant
DX: Z00.00 Encounter for general adult medical examination without abnormal findings (principal); R14.0 Abdominal distension (gaseous); E78.00 Pure hypercholesterolemia, unspecified; E11.65 Type 2 diabetes mellitus with hyperglycemia; R35.89 Other polyuria
CPT/HCPCS: 36415; 80053; 80061; 81001; 81003; 82306; 82607; 82746; 83036; 84439; 84443; 85025

== ENCOUNTER 2024-08-14 09:25 | Outpatient (AMB) | payer OTHER, SELFPAY ==
[2024-08-14 09:41] VITALS: BMI 45.2
--- NOTE | 2024-08-14 09:41 | A.OFFVIS_ITS ---
VS Expanded 08/14/24 09:41 08/14/24 09:49 Height 5 ft 8 in 5 ft 8 in Weight 297 lb 2.93 oz 297 lb BMI 45.2 45.2 Intake Visit Reasons: Abdominal distension (gaseous) Allergies Seasonal Allergies Allergy (Mild, Verified 07/09/24 10:00) Nasal congestion atomoxetine [From Strattera] Adverse Reaction (Intermediate, Verified 07/09/24 10:00) headaches Nutrition Presentation Details: Pt presents for MNT class 2 obesity with abdominal distention Pt reports working on choosing gluten free foods and reports noticing some improvement in bloating sensation Reports having no meal routine food frequency fruit:0-1/d ve-3/d prot: poultry/fish/beef/eggs/cottage cheese/beans dairy: cheese/milk/food snacks with lactose starches: working on choosing gluten free beverages:water physical activity: daily life activities etoh/smoking--- BS Monitoring Most Recent Diabetes Results: Cholesterol 183 mg/dL (<200) 08/06/24 HDL Cholesterol 33 mg/dL (>40) L 08/06/24 Triglycerides 107 mg/dL (<150) 08/06/24 Creatinine 0.74 mg/dL (0.5-1.4) 08/06/24 Blood Urea Nitrogen 11 mg/dL (9-16) 08/06/24 Sodium 140 mmol/L (135-145) 08/06/24 Potassium 4.3 mmol/L (3.3-5.1) 08/06/24 Chloride 109 mmol/L (96-108) H 08/06/24 Carbon Dioxide 24 mmol/L (22-29) 08/06/24 Calcium 9.4 mg/dL (8.4-10.2) 08/06/24 AST 24 U/L (5-31) 08/06/24 ALT 31 U/L (0-31) 08/06/24 Total Protein 7.8 g/dL (6.5-8.0) 08/06/24 Albumin 4.4 g/dL (3.5-5.0) 08/06/24 GAO-Dbmlocy-Mq.Jeor Equation Height: 5 ft 8 in Weight: 297 lb Resting Metabolic Rate: 2101.96 Calculated Activity Level: Sedentary Calories Needed to Maintain Weight: 2522.35 Diagnosis Nutrition problem #1: food nutri know defi As related to (etiology) #1: diagnosis As evidenced by (sign/symptom) #1: knowledge deficit of diet PFSH Surgical History (Updated 07/09/24 @ 10:02 by Rachael Painting PA-C) H/O Spinal surgery No pertinent past surgical history Family History Father Hypertension Psoriasis Obese Melanoma Mother Hypertension Obese Heart disease Diabetes COPD (chronic obstructive pulmonary disease) Social History Housing: House Alcohol intake: unknown Patient Tobacco Use Status: Former Tobacco user Tobacco use type: Cigarette e-Cigarette/Vaping Use: Never Used Second Hand Smoke Exposure: No service: No Current occupational status: employed 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 Current occupational exposures/hazards: No Cognitive needs: No Hearing needs: No Vision needs: Yes Assessment & Plan Assessment & Plan (1) Morbid obesity with BMI of 40.0-44.9, adult: Code(s): E66.01 - Morbid (severe) obesity due to excess calories; Z68.41 - Body mass index [BMI] 40.0-44.9, adult Category: Medical Plan: Wt: 135Kg ( 08/23 ) Est kcal needs as per MSJ: 2500 (40% carb, 30% protein/fat) Est fluid needs as per 25-30 ml/d: 4000 Est prot per day as per 1 g/kg bw: 135 Recommend fiber intake : 8-10 g per day and gradually increase to 25-28 g per day for women and 35-38 g for men or as tolerated Recommend sodium intake per day : less than 1500 mg less than 2000 mg Educated patient on: ( R = reviewed V = verbalizes understanding N/R = needs review N/A = not applicable * Food sources of carbohydrate, adequate serving sizes and its role in various health conditions: R V N/R * Differences between complex carbohydrates a simple carbohydrates, role of fiber in diet: R * Lean protein sources of foods: R * lactose free options: R * Reducing portion sizes: R * Differences between types of fats and role in diet (mono on saturated fat fatty acids, saturated fatty acids, trans fats): R V N/R * Food sources of sodium in salt and healthy modifications for heart health in kidney health: R V R/V * Vitamins and minerals: R V N/R * Healthy plate method concept: R V N/R * Physical activity: Benefits a precaution: R V N/R * Hypoglycemia protocol (rule of 15): R V N/R * Dietary prevention of Hyperglycemia: R V R/V Patient Instructions: Practice mindful eatin g Work on choosing lactose free Choose naturally gluten free foods (fruits/quinoa,rice, vegetables, starchy vegetables) see meal ideas Coding Level of Care Code Nutr Indiv Intake (09802) Diagnoses Morbid obesity with BMI of 40.0-44.9, adult E66.01; Z68.41 Time Spent (min) 30
[2024-08-19 10:26] VITALS: BMI 45.2
== END 2024-08-14 10:54 | disposition home or self-care (01) ==
PROVIDERS: PCP Physician Assistant; Visit Provider Dietitian, Registered
DX: E66.01 Morbid (severe) obesity due to excess calories (principal); Z68.41 Body mass index [BMI] 40.0-44.9, adult

== ENCOUNTER → 2024-08-14 09:25 | Outpatient (BNVA) | payer OTHER, SELFPAY | PROVIDERS: PCP Physician Assistant; Visit Provider Dietitian, Registered | DX: E66.01 Morbid (severe) obesity due to excess calories (principal); Z68.41 Body mass index [BMI] 40.0-44.9, adult; R14.0 Abdominal distension (gaseous); Z71.3 Dietary counseling and surveillance | CPT/HCPCS: 97802 ==

== ENCOUNTER 2024-09-25 08:57 | Outpatient (AMB) | payer OTHER, SELFPAY ==
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
[2024-09-25 09:20] VITALS: BP 130/80; PULSE 68; TEMP 36.2; O2SAT 99; BMI 46.0
== END 2024-09-25 10:04 | disposition home or self-care (01) ==
DX: Z00.00 Encounter for general adult medical examination without abnormal findings (principal); E66.01 Morbid (severe) obesity due to excess calories; Z68.41 Body mass index [BMI] 40.0-44.9, adult; F33.1 Major depressive disorder, recurrent, moderate; F11.21 Opioid dependence, in remission; N39.3 Stress incontinence (female) (male); F90.0 Attention-deficit hyperactivity disorder, predominantly inattentive type; F17.200 Nicotine dependence, unspecified, uncomplicated; M47.816 Spondylosis without myelopathy or radiculopathy, lumbar region; J45.909 Unspecified asthma, uncomplicated; K21.9 Gastro-esophageal reflux disease without esophagitis; R10.11 Right upper quadrant pain

== ENCOUNTER → 2024-09-25 08:57 | Outpatient (BNVA) | payer OTHER, SELFPAY | DX: Z00.00 Encounter for general adult medical examination without abnormal findings (principal); N39.3 Stress incontinence (female) (male); E66.01 Morbid (severe) obesity due to excess calories; Z68.41 Body mass index [BMI] 40.0-44.9, adult; F33.1 Major depressive disorder, recurrent, moderate; F90.0 Attention-deficit hyperactivity disorder, predominantly inattentive type; M47.816 Spondylosis without myelopathy or radiculopathy, lumbar region; J45.909 Unspecified asthma, uncomplicated; K21.9 Gastro-esophageal reflux disease without esophagitis; R10.11 Right upper quadrant pain; F17.200 Nicotine dependence, unspecified, uncomplicated; F11.21 Opioid dependence, in remission | CPT/HCPCS: 81002; 96127 ==

== ENCOUNTER 2024-10-01 13:47 | Outpatient (REF) | payer OTHER, SELFPAY | END 2024-10-01 13:48 | disposition home or self-care (01) | LOC: HO.HMGCX 13:47 | DX: M47.816 Spondylosis without myelopathy or radiculopathy, lumbar region (principal) | CPT/HCPCS: 72100 ==

== ENCOUNTER → 2024-10-01 13:55 | Outpatient (BNV) | payer OTHER, SELFPAY | PROVIDERS: Visit Provider Radiology Diagnostic Radiology | DX: M47.816 Spondylosis without myelopathy or radiculopathy, lumbar region (principal) | CPT/HCPCS: 72100 ==

== ENCOUNTER 2024-11-27 08:52 | Outpatient (REF) | payer OTHER, SELFPAY ==
--- NOTE | ~2024-11-27 | US_ITS ---
CLINICAL HISTORY: R10.11 - Right upper quadrant pain US abdomen complete Comparison: 12/12/2021 Findings: The visualized pancreas is normal. The aorta and inferior vena cava are normal caliber. The appearance of the liver suggests fatty infiltration without focal lesion. There is no intrahepatic bile duct dilatation. The common duct is 3.9 mm in diameter. The gallbladder is normal. There is no sonographic Esparza sign. The main portal vein is antegrade. The right kidney is 12.0 cm in length. The left kidney is 11.1 cm in length. The spleen is normal. No ascites. IMPRESSION: 1. Hepatic steatosis. This document has been electronically signed by: Robert Nuñez MD on 11/28/2024 08:31:20
== END 2024-11-27 08:53 | disposition home or self-care (01) ==
LOC: HO.US 08:52
DX: R10.11 Right upper quadrant pain (principal); R14.0 Abdominal distension (gaseous)
CPT/HCPCS: 76700

== ENCOUNTER → 2024-11-27 08:54 | Outpatient (BNV) | payer OTHER, SELFPAY | PROVIDERS: Visit Provider Specialist | DX: K76.0 Fatty (change of) liver, not elsewhere classified (principal) | CPT/HCPCS: 76700 ==

== ENCOUNTER 2024-12-23 08:52 | Outpatient (AMB) | payer OTHER, SELFPAY ==
--- NOTE | 2024-12-23 09:01 | MHC.PC.OV ---
Vital Signs 12/23/24 09:03 Height 5 ft 8 in Weight 274 lb BMI 41.7 BP 140/60 H Blood Pressure Location Lt brachial Position Sitting Pulse 75 Pulse Source Pulse Oximeter Temp 97.3 F Temp Source Temporal Artery Scan Pulse Oximetry (%) 97 Oxygen Delivery Method Room Air Intake Visit Reasons: f/u GERD and back pain Intake Note: Patient is here to follow up on GERD, Back pain. Coding Manager Required: No Loading Machine Tool Setter: Not Required per policy Accompanied by: Self / Same As Patient Allergies Seasonal Allergies Allergy (Mild, Verified 12/23/24 09:15) Nasal congestion atomoxetine [From Strattera] Adverse Reaction (Intermediate, Verified 12/23/24 09:15) headaches Medication List - Last Reconciled 12/23/24 by Rachael Painting PA-C albuterol sulfate 90 mcg/actuation 1 inh inhalation QID PRN cholecalciferol (vitamin D3) 25 mcg PO DAILY Tobacco use date assessed: 12/23/24 Dental Screening Dental Screen Date: 09/25/24 HPI f/u GERD and back pain HPI Details 34-year-old female with past medical history of depression, obesity, ADD, opiate dependence last seen 08/2024 coming in for follow up. At her last visit lumbar x-ray was obtained referral was placed to pain management chiropractor at that time. Patient was also scheduled for an upper GI series for worsening acid reflux and abdominal ultrasound ordered for right upper quadrant pain.? Abdominal ultrasound obtained which showed hepatic steatosis no explanation for right upper quadrant pain. Presenting with follow-up for several chronic conditions. She has achieved a weight loss of 30 pounds through dietary modifications and healthier lifestyle choices. Nonalcoholic fatty liver disease was identified via ultrasound, and the patient is managing this condition by focusing on healthy eating habits. She reports improvement in GERD symptoms through lifestyle changes, choosing not to undergo further diagnostic testing like a barium swallow due to symptom alleviation. Lower back pain has been persistent since June last year, impacting her ability to stand or walk for long periods. Surgical intervention has been recommended by her specialist. Gastrointestinal irregularity, initially including constipation and diarrhea, has been addressed with diet changes, though further evaluation may be needed. 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 Current occupational exposures/hazards: No Cognitive needs: No Hearing needs: No Vision needs: Yes Questionnaire Thrive Questionnaire Date Thrive assessed: 09/25/24 I am a: Patient What is your living situation today?: I have a steady place to live Within the past 12 months, did the food you bought not last and you didn't have the money to get more?: Never true Within the past 12 months, did you worry whether your food would run out before you got money to buy more?: Never true Do you have trouble paying for medicines?: No Do you have trouble getting transportation to medical appointments?: No Do you have trouble paying your heating and electricity bill?: Yes Do you have trouble taking care of your child, family member or friend?: No Do you have trouble with day-to-day activities such as bathing, preparing meals, shopping, managing finances, etc.?: No Are you currently unemployed and looking for a job?: No Are you interested in more education?: Yes Please select the resources that you would like help with: Education THRIVE Score: 1 JACKI-7 AMB Questionnaire JACKI-7 Date JACKI - 7 assessed: 09/25/24 Source: Developed by Drs. Mark Sánchez, Olivia Shaw, Jonathan Chiu and colleagues, with an educational sadie from [employer]. Review of Systems Const Denies body aches, Denies chills, Denies fever(s), Denies headache(s) and Denies poor appetite Eyes Reports no additional complaints ENT Denies dysphagia, Denies dizziness, Denies headache(s) and Denies odynophagia Card Denies chest pain and Denies dyspnea Resp Denies cough and Denies dyspnea GI Reports as per HPI, Denies abdominal pain, Reports constipation, Denies dysphagia, Reports diarrhea, Denies nausea, Denies odynophagia and Denies vomiting Reports no additional complaints Musc Reports no additional complaints and Denies abnormal gait Skin/Breast Reports system reviewed and no additional complaints, except as documented Neuro Denies abnormal gait, Denies dizziness and Denies headache(s) Psych Reports no additional complaints Physical exam (Primary Care) Vital Signs: Last Vital Signs Temp 97.3 F 12/23/24 09:03 Pulse 75 12/23/24 09:03 BP 140/60 H 12/23/24 09:03 Pulse Ox 97 12/23/24 09:03 Oxygen Delivery Method Room Air 12/23/24 09:03 BMI result Body Mass Index 41.7 Tobacco/Smoking Status: Tobacco use Status Tobacco use date assessed 12/23/24 12/23/24 09:08 Patient Tobacco Use Status Former Tobacco user 12/23/24 09:08 Tobacco use type Cigarette 12/23/24 09:08 e-Cigarette/Vaping Use Never Used 12/23/24 09:08 Thrive Assessment: Date of Thrive Assessment Date Thrive assessed 09/25/24 12/23/24 09:08 Const General: cooperative, healthy appearing, comfortable and no acute distress Orientation/consciousness: patient oriented x3 HENMT Head: Yes normocephalic Ears: hearing grossly normal bilaterally General nose exam: Normal external nose present Eyes General: appearance normal, both eyes and all related structures Conjunctivae: conjunctivae normal Neck Neck: Yes full ROM and Yes no lymphadenopathy Resp Effort & Inspection: normal respiratory effort Auscultation: clear to auscultation bilaterally, no crackles, no rales, no rhonchi and no wheezes Cardio Rate: regular rate Rhythm: regular rhythm Skin General skin exam: no rashes or lesions noted Neuro General: patient oriented x3 Gait exam (Neuro): Normal gait present Extrem General: Yes normal to inspection, Yes full ROM and No edema Psych Affect: normal affect Attitude: cooperative Insight: Good insight present (Psych) Judgement: Good judgement present (Psych) Coding Level of Care Code Est Pt Level 3 (13885) Diagnoses Morbid obesity with BMI of 40.0-44.9, adult E66.01; Z68.41 Lumbar spondylosis M47.816 Acid reflux K21.9 RUQ abdominal pain R10.11 Assessment & Plan Assessment & Plan (1) Morbid obesity with BMI of 40.0-44.9, adult: Code(s): E66.01 - Morbid (severe) obesity due to excess calories; Z68.41 - Body mass index [BMI] 40.0-44.9, adult Category: Medical Plan: Healthy diet and regular exercise is encouraged. Noted 28 lb weight loss since her last visit! (2) Lumbar spondylosis: Code(s): M47.816 - Spondylosis without myelopathy or radiculopathy, lumbar region Category: Medical Plan: Lumbar spine x-ray was obtained at last visit patient has been seeing [facility]. There is consideration for possible surgery L5 shave per the patient. Plan to obtain these records and continue to follow with [facility]. (3) Acid reflux: Code(s): K21.9 - Gastro-esophageal reflux disease without esophagitis Category: Medical Plan: The patient will undergo abdominal ultrasound and upper GI series to investigate gastrointestinal complaints, with GI consultation plans in place. Advised to use Tums as needed. Has been improving with weight loss and diet changes. (4) RUQ abdominal pain: Code(s): R10.11 - Right upper quadrant pain Category: Medical Plan: RUQ pain has improved she still does experience it with some foods. Recommend elimination diet to identify triggers. No gallstones on US. Plan The management plan focuses on continued weight management through dietary modifications, with an emphasis on sustaining improvement in GERD and gastrointestinal symptoms. Surgical consultation is ongoing for lower back pain management, utilizing non-opioid pain relief strategies. Additional evaluations for gastrointestinal symptoms may include a potential colonoscopy, catering to the patient's diverse health needs. Ongoing monitoring will aid in adjusting interventions to align with the patient's progress and symptomatic relief. This note was constructed using voice recognition software. While every effort has been made to ensure accuracy and biomedical manager, still areas may have been included sometimes these areas may affect the content or meeting of the given symptoms. Total time spent caring for the patient today was 20 minutes. This includes time spent before the visit reviewing the chart, time spent during the visit, and time spent after the visit and documentation. Patient was informed and verbally consented to the use of an ambient scribe for clinic note documentation during this visit.
[2024-12-23 09:03] VITALS: BP 140/60; PULSE 75; TEMP 36.3; O2SAT 97; BMI 41.7
== END 2024-12-23 09:36 | disposition home or self-care (01) ==
LOC: HO.HMCH 08:53
DX: E66.01 Morbid (severe) obesity due to excess calories (principal); Z68.41 Body mass index [BMI] 40.0-44.9, adult; M47.816 Spondylosis without myelopathy or radiculopathy, lumbar region; K21.9 Gastro-esophageal reflux disease without esophagitis; R10.11 Right upper quadrant pain

== ENCOUNTER 2025-04-09 08:53 | Outpatient (AMB) | payer OTHER, SELFPAY ==
--- NOTE | 2025-04-09 08:55 | A.OFFPC_ITS ---
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 Required: No Accompanied by: Self / Same As Patient Allergies Seasonal Allergies Allergy (Mild, Verified 04/09/25 09:27) Nasal congestion atomoxetine (From Strattera) Adverse Reaction (Intermediate, Verified 04/09/25 09:27) headaches Medication List - Last Reconciled 04/09/25 by KATERINE Baron albuterol sulfate 90 mcg/actuation 1 inh inhalation QID PRN Tobacco use date assessed: 04/09/25 Dental Screening Dental Screen Date: 04/09/25 Did you have a dental visit in the last 12 months?: No Did you have a dental problem in the last 6 months where you did not have access to dental care?: No Was dental information given to patient?: No HPI bowel issues HPI Details The patient is a 34-year-old female presenting with gastrointestinal symptoms including abdominal bloating, constipation, diarrhea, and heartburn. She reports experiencing stomach issues since 2019, which have progressively worsened. The patient has a history of major back surgery and a spinal abscess, for which she was on prolonged antibiotic therapy. The patient describes her bowel movements as fluctuating between constipation and diarrhea, with episodes of pencil-sized stools and shanika, murky stools. She reports experiencing heartburn and significant bloating, sometimes appearing as if she is nine months . She also notes a lack of appetite, eating only one meal a day, and feeling constantly uncomfortable in her abdomen. The patient is also having intermittent bright red blood from rectum, sometimes only when wipes, others without wiping. The patient has a history of substance use disorder, now in remission, and has been sober for several years. She has a history of MRSA and was treated with strong antibiotics, including Saflaxin. An ultrasound revealed a fatty liver, which she is managing through weight loss and dietary changes. 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 1. Little interest or pleasure in doing things: not at all 2. Feeling down, depressed, or hopeless: not at all 3. Trouble falling or staying asleep, or sleeping too much: not at all 4. Feeling tired or having little energy: more than half the days 5. Poor appetite or overeating: more than half the days 6. Feeling bad about yourself - or that you are a failure or have let yourself or your family down: not at all 7. Trouble concentrating on things, such as reading the newspaper or watching television: not at all 8. Moving or speaking so slowly that other people could have noticed. Or the opposite - being so fidgety or restless that you have been moving around a lot more than usual: not at all 9. Thoughts that you would be better off or of hurting yourself in some way: not at all Total score: 4 Depression Screening Interpretation: Negative Depression Screening Done: Yes Source: Developed by Drs. Mark Sánchez, Olivia Shaw, Jonathan Chiu and colleagues, with an educational sadie from [employer]. Thrive Questionnaire Date Thrive assessed: 04/09/25 I am a: Patient What is your living situation today?: I have a steady place to live Within the past 12 months, did the food you bought not last and you didn't have the money to get more?: Never true Within the past 12 months, did you worry whether your food would run out before you got money to buy more?: Never true Do you have trouble paying for medicines?: No Do you have trouble getting transportation to medical appointments?: No Do you have trouble paying your heating and electricity bill?: Yes Do you have trouble taking care of your child, family member or friend?: No Do you have trouble with day-to-day activities such as bathing, preparing meals, shopping, managing finances, etc.?: No Are you currently unemployed and looking for a job?: No Are you interested in more education?: Yes Please select the resources that you would like help with: Education THRIVE Score: 1 AUDIT C Alcohol Use Questionnaire (AUDIT-C) 1. How often do you have a drink containing alcohol?: Never Total Score: 0 JACKI-7 AMB Questionnaire JACKI-7 Date JACKI - 7 assessed: 04/09/25 Feeling nervous, anxious, or on edge: 1 = Several days Not being able to stop or control worryin = Not at all Worrying too much about different things: 0 = Not at all Trouble relaxin = Not at all Being so restless that it is hard to sit still: 2 = More than half the days Becoming easily annoyed or irritable: 0 = Not at all Feeling afraid as if something awful might happen: 0 = Not at all Total JACKI-7 score (0-4 normal; 5-9 mild; 10-14 moderate; 15-21 severe): 3 Source: Developed by Drs. Mark Sánchez, Olivia Shaw, Jonathan Chiu and colleagues, with an educational sadie from [employer]. Review of Systems Const Denies body aches, Denies chills, Denies fever(s), Denies headache(s) and Denies poor appetite Eyes Reports no additional complaints ENT Denies dysphagia, Denies dizziness, Denies headache(s) and Denies odynophagia Card Denies chest pain, Denies syncope, Denies edema, Denies irregular heart rhythm, Denies lightheadedness and Denies dyspnea Resp Denies cough and Denies dyspnea GI Denies abdominal pain, Reports bloating, Reports hematochezia (Infrequent), Reports constipation (Alternating), Denies dysphagia, Reports heartburn, Reports loose stools, Reports nausea (Intermittent), Denies odynophagia and Denies vomiting Reports no additional complaints Musc Reports no additional complaints and Denies abnormal gait Skin/Breast Reports system reviewed and no additional complaints, except as documented Neuro Denies abnormal gait, Denies dizziness, Denies syncope and Denies headache(s) Psych Reports no additional complaints Physical exam (Primary Care) Vital Signs: Last Vital Signs Temp 97.3 F 04/09/25 08:56 Pulse 63 04/09/25 08:56 Resp 18 04/09/25 08:56 BP 110/78 04/09/25 08:56 Pulse Ox 99 04/09/25 08:56 Oxygen Delivery Method Room Air 04/09/25 08:56 BMI result Body Mass Index 41.3 Tobacco/Smoking Status: Tobacco use Status Tobacco use date assessed 04/09/25 04/09/25 09:09 Patient Tobacco Use Status Former Tobacco user 04/09/25 09:09 Tobacco use type Cigarette 04/09/25 09:09 e-Cigarette/Vaping Use Never Used 04/09/25 09:09 PHQ-9: PHQ-9 Score PHQ-9: Total score 4 04/09/25 09:09 Depression Screening Interpretation: Negative Thrive Assessment: Date of Thrive Assessment Date Thrive assessed 04/09/25 04/09/25 09:09 Const General: cooperative, healthy appearing, comfortable and no acute distress Orientation/consciousness: patient oriented x3 HENMT Head: Yes normocephalic Ears: hearing grossly normal bilaterally General nose exam: Normal external nose present Eyes General: appearance normal, both eyes and all related structures Conjunctivae: conjunctivae normal Neck Neck: Yes full ROM and Yes no lymphadenopathy Resp Effort & Inspection: normal respiratory effort Auscultation: clear to auscultation bilaterally, no crackles, no rales, no rhonchi and no wheezes Cardio Rate: regular rate Rhythm: regular rhythm GI Inspection: Yes distended and Yes obesity Palpation (GI): Soft to palpation and nontender Auscultation: normal bowel sounds Rectal Exam - Female: deferred General: Yes no CVA tenderness Back/Spine/Pelvis Back: no CVA tenderness Skin General skin exam: no rashes or lesions noted Neuro General: patient oriented x3 Gait exam (Neuro): Normal gait present Extrem General: Yes normal to inspection, Yes full ROM and No edema Psych Affect: normal affect Attitude: cooperative Insight: Good insight present (Psych) Judgement: Good judgement present (Psych) Coding Level of Care Code Est Pt Level 3 (23205) Diagnoses Change in stool caliber R19.5 Abdominal bloating R14.0 Postprandial bloating R14.0 Early satiety R68.81 Anal bleeding K62.5 Hepatic steatosis K76.0 Time Spent (min) 34 Assessment & Plan Assessment & Plan (1) Change in stool caliber: Code(s): R19.5 - Other fecal abnormalities Category: Medical (2) Abdominal bloating: Code(s): R14.0 - Abdominal distension (gaseous) Category: Medical (3) Postprandial bloating: Code(s): R14.0 - Abdominal distension (gaseous) Category: Medical (4) Early satiety: Code(s): R68.81 - Early satiety Category: Medical (5) Anal bleeding: Code(s): K62.5 - Hemorrhage of anus and rectum Category: Medical (6) Hepatic steatosis: Code(s): K76.0 - Fatty (change of) liver, not elsewhere classified Category: Medical Plan Plan Patient was informed and verbally consented to the use of an ambient scribe for clinic note documentation during this visit. 1. Gastroesophageal Reflux Disease (Gerd) The patient will be started on pantoprazole to manage GERD symptoms, with instructions to take it before meals. She is advised to avoid excessive use of Tums due to potential kidney stone risk and to increase fluid intake. 2. Abdominal Bloating An urgent referral for a colonoscopy is planned to evaluate the cause of abdominal bloating and other gastrointestinal symptoms. 3. Constipation The patient is advised to increase fiber intake and consider using MiraLax to manage constipation. 4. Diarrhea The patient is advised to maintain hydration and monitor symptoms, with further evaluation planned through a colonoscopy. 5. Hemorrhoids The presence of hemorrhoids is noted, with recommendations to manage symptoms through dietary changes and increased fiber intake. 6. Fatty Liver The patient is encouraged to continue weight management and dietary changes to address fatty liver. Orders: Referrals Gastroenterology Referral K21.9 - Gastro-esophageal reflux disease without esophagitis, K62.5 - Hemorrhage of anus and rectum, R14.0 - Abdominal distension (gaseous), R19.5 - Other fecal abnormalities, R68.81 - Early satiety Medications: New pantoprazole 40 mg PO DAILY 90 tabs 3RF
[2025-04-09 08:56] VITALS: BP 110/78; PULSE 63; RESP 18; TEMP 36.3; O2SAT 99; BMI 41.3
--- OUTSIDE RECORDS SUMMARY | 2025-04-09 10:03 | XMS_ITS | Encounter Summary ---
Author Organization [facility] Address [address] [place] [id number] Phone Care Team Providers Care Nutrition Educator Name Role Phone Ernesto Carcamo Primary Care Provider + Encounter Details Date Type Department Care Team (Late st Contact Info) Description 07/10/2020 Transcribe Orders [facility] Specimen Processing [address] [place] [address] Dru Myrick MD [address], [address] [place] [address] [email or web address] Epidural abscess (Primary Dx) Social History Tobacco Use Types Packs/Day Years Used Date Smoking Tobacco: Never Assessed Comments Unknown Sex and Gender Information Value Date Recorded Sex Assigned at Female 12/15/2019 1:07 PM EDT Legal Sex Female 1:01 PM EDT Gender Identity Female 12/15/2019 1:07 PM EDT Sexual Orientation Straight 12/15/2019 1: 07 PM EDT documented as of this encounter Plan of Treatment Not on file documented as of this encounter Visit Diagnoses Diagnosis Epidural abscess- Primary Intracranial abscess documented in this encounter Additional Health Concerns Infection Onset Date Last Indicated Resolved Time CoV-Exposed Comment:Recent close contact 07/09/2020 07/09/2020 07/23/2020 1:24 AM EST documented as of this encounter Care Teams Nutrition Educator Relationship Specialty Start Date End Date Ernesto Carcamo PA [address] [place] [address] PCP - General 12/15/19 documented as of this encounter Additional Source Comments The information contained in this document represents components of the legal health record. It is not the complete legal health record.[facility]
--- OUTSIDE RECORDS SUMMARY | 2025-04-09 10:03 | XMS_ITS | Clinical Summary ---
Author Organization [facility] Address [address] [place] [phone] Phone Care Team Providers Care Caption Writer Name Role Phone Ernesto Carcamo Primary Care Provider + Social History Tobacco Use Types Packs/Day Years Used Date Smoking Tobacco: Never Assessed Education Answer Date Recorded Are you interested in more education? Not on jamshid e 11/24/2022 Are you concerned about learning? Not on file 11/24/2022 No 11/24/2022 No 11/24/2022 Digital Access Answer Date Recorded No 12/23/2022 No 12/23/2022 No 12/23/2022 Reliable internet access at home? Not on file 12/23/2022 Device with a working camera? Not on file Comments Unknown Sex and Gender Information Value Date Recorded Sex Assigned at Female 12/15/2019 1:07 PM EDT Legal Sex Female 1:01 PM EDT Gender Identity Female 12/15/2019 1:07 PM EDT Sexual Orientation Straight 12/15/2019 1: 07 PM EDT Plan of Treatment Health Maintenance Due Date Last Done Comments DEPRESSION SCREENING 2003 SMOKING Hx and SMOKELESS TOBACCO SCREENING 2004 HEPATITIS C SCREENING 2009 HIV ONE-TIME SCREENING (18-6 5 YEARS) 2009 PAP SMEAR 2012 Adult Td,Tdap Booster 11/17/2024 11/17/2014 INFLUENZA VACCINE (#1) 2025 6, 05/12/2014 COVID-19 VACCINE (2024-2 6 season) 2025 12/24/2020 PNEUMOCOCCAL VACCINES (0-49 years) Aged Out 05/12/2014 No longer eligible b ased on patient's age to complete this topic HEPATITIS A VACCINES Aged Out No long er eligible based on patient's age to complete this topic HIB VACCINES Aged Out No longer eligi ble based on patient's age to complete this topic MENINGOCOCCAL VACCINES (ACWY) Aged Out No longer eligible based on patient's age to complete this topic MENINGOCOCCAL VACCINES (B) Aged Out N o longer eligible based on patient's age to complete this topic Medical Devices Not on file Insurance ACO [place] [address] [place] [address] [place] [address] [place] [address] [place] [address] [place] [address] ACO Care Teams Caption Writer Relationship Specialty Start Date End Date Ernesto Carcamo PA [address] [place] [address] PCP - General 12/15/19 Additional Source Comments The information contained in this document represents components of the legal health record. It is not the complete legal health record.[facility]
== END 2025-04-09 09:49 | disposition home or self-care (01) ==
LOC: HO.HMCH 08:54
DX: R19.5 Other fecal abnormalities (principal); R14.0 Abdominal distension (gaseous); R68.81 Early satiety; K62.5 Hemorrhage of anus and rectum; K76.0 Fatty (change of) liver, not elsewhere classified

== ENCOUNTER 2025-04-17 12:49 | Emergency (ER) | payer OTHER, SELFPAY ==
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
[2025-04-17 12:54] VITALS: BP 139/82; PULSE 88; RESP 20; TEMP 36.3; O2SAT 98; BMI 39.9
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
--- OUTSIDE RECORDS SUMMARY | 2025-04-17 16:02 | XMS_ITS | Encounter Summary ---
Author Organization [facility] Address [address] [facility] [address] [place] [phone] Phone Care Team Providers Care Coal Feeder Operator Name Role Phone Ernesto Carcamo Primary Care Provider + Encounter Details Date Type Department Care Team (Late st Contact Info) Description 07/10/2020 Transcribe Orders [facility] Specimen Processing [address] [place] [address] Dru Myrick MD [address] [facility] [address] [place] [address] [email or web address] Epidural abscess (Primary Dx) Social History Tobacco [...] documented as of this encounter Care Teams Coal Feeder Operator Relationship Specialty Start Date End Date Ernesto Carcamo PA [address] [place] [address] PCP - General 12/15/19 documented as of this encounter Additional Source Comments The information contained in this document represents components of the legal health record. It is not the complete legal health record.[facility]
--- OUTSIDE RECORDS SUMMARY | 2025-04-17 16:02 | XMS_ITS | Clinical Summary ---
Author Organization [facility] Address [address] [facility] [address] [place] [phone] Phone Care Team Providers Care Pipe Changer Name Role Phone Ernesto Carcamo Primary Care [...] on file Insurance ACO ACO [place] [address] [place] [address] [place] [address] [place] [address] [place] [address] [place] [address] ACO Care Teams Pipe Changer Relationship Specialty Start Date End Date Ernesto Carcamo PA [address] [place] [address] PCP - General 12/15/19 Additional Source Comments The information contained in this document represents components of the legal health record. It is not the complete legal health record.[facility]
== END 2025-04-17 16:33 | disposition left against medical advice (07) ==
PROVIDERS: Emergency Provider Emergency Medicine
DX: M54.50 Low back pain, unspecified (principal); Z87.891 Personal history of nicotine dependence
CPT/HCPCS: 72100; 99281; 99283

== ENCOUNTER → 2025-04-17 12:56 | Outpatient (BNV) | payer OTHER, SELFPAY | PROVIDERS: Visit Provider Radiology Diagnostic Radiology | DX: M53.3 Sacrococcygeal disorders, not elsewhere classified (principal) | CPT/HCPCS: 72100 ==

== ENCOUNTER 2025-04-20 08:06 | Outpatient (AMB) | payer OTHER, SELFPAY ==
--- NOTE | 2025-04-20 08:23 | A.OFFVIS_ITS ---
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 BMI 41.7: Details: Start time: 8.18am, End time: 8.58am ?I spent 35 minutes speaking with the patient on the phone plus an additional 5 minutes reviewing and updating records for a total of 40 minutes HPI Comments Details: Previous weight loss efforts: WW, self diet and exercise Wakes up: 5am, Sleeps: 10pm Breakfast: skips Lunch: mostly skips Dinner: 7-8pm (salmon, rice, broccoli, chicken, soups) Snacks: 2 snacks before dinner (boiled egg, broth), after dinner (chocolate) Exercise: none Beverages: Coffee: (1-2 cups/d with cream and sugar), Tea:none, Soda: none, Juice: none, ETOH: none PFSH Medical History (Updated 04/20/25 @ 08:26 by Ismael Orozco MD) Asthma Morbid obesity Grief reaction MRSA infection Balance problem Spinal abscess Inguinal abscess Surgical History Hx of wisdom tooth extraction H/O Spinal surgery Family History Father Hypertension Obese Melanoma Psoriasis Mother Hypertension Obese Heart disease Diabetes COPD (chronic obstructive pulmonary disease) Social History Housing: House Alcohol intake: former Patient Tobacco Use Status: Former Tobacco user Tobacco use type: Cigarette e-Cigarette/Vaping Use: Never Used Second Hand Smoke Exposure: Yes service: No Current occupational status: employed 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 Current occupational exposures/hazards: No Cognitive needs: No Hearing needs: No Vision needs: Yes Telehealth Telehealth Telehealth Platform: Telephone Location of provider rendering services: practice address Location of patient: address on file Patient Identification confirmed using: Name, : Yes Telehealth method: voice only Patient verbally consented to treatment: Yes Patient verbally consented to billing insurance company: Yes Patient informed of any privacy concerns related to visit: Yes Minutes spent on Phone/Video with Pt.: 40 Assessment & Plan Assessment & Plan (1) Morbid obesity: Code(s): E66.01 - Morbid (severe) obesity due to excess calories Category: Medical Plan: 1. As we discussed, based on your present BMI you are approximately 100lbs overweight. In my opinion, for any weight loss strategy to be successful should have a high probability to help you lose at least 80lbs out of 100lbs of the extra weight you carry. We discussed in detail the available therapeutic options: a) our lifestyle intervention program that has an average weight loss of 10% in 3 months.?Some patients continue it for longer and have lost over 50lbs but this is not common. Our lifestyle program can be provided by me. I will provide you with a link to use the jaswinder if you choose to do so. We use protein shakes and protein bars to replace some of the meals of the day and cover your appetite better. We will decide together the exact combination. b) Weight loss medications: these can be used in conjunction with our lifestyle program or you may choose to use them without following a lifestyle program from my program but your own. As we discussed, your insurance requires you to do the lifestyle program for 3 months before they approve the medications. The medication I use more often is called Zepbound and is one shot per week. My office will do the authorizations and we will train you how to use it properly. We also discussed that you can self pay for the first 3 months and the cost is $249 for the first month and $499 for any other month thereafter. These payments go to the drug company directly and not to us. c) We also discussed about the lap sleeve gastrectomy. In my opinion this is the best option to solve your problem based on your situation and should be used in conjunction with the two previous options. A good strategy to make this decision to proceed with surgery, is to set some goals with the lifestyle intervention and medication options: If you don't lose at least 10lbs the first 6 weeks after starting the program or at least 10% in 3 months. ?I emphasized the importance of close follow-up, adherence to instructions and good communication. The surgery does not replace the need to change your lifestlyle which is the cause of the obesity problem. The surgery provides the motivation to try again to change your lifestyle, it reduces the appetite and make the transition to a better lifestyle easier and doubles the amount of weight you would lose compared to doing the lifestyle change without the surgery. You will need to be on a liquid diet with protein shakes for 2 weeks before surgery to maximize weight loss and boost your nutritional status to recover better from surgery and also for the first two weeks after surgery to let the stomach heal before we introduce other foods. After the first 2 weeks we will introduce protein bars and soft foods like scrambled eggs, cottage cheese and yogurt and after the 6th week will introduce meat, fish and cooked vegetables in small amounts. Over time you should be able to eat everything in small amounts. Side effects like nausea, vomiting, heartburn or abdominal pain are not common in the practice unless you are not following in the practice. This operation requires lifetime commitment to following in our practice and communication with me. You will much less weight and experience side effects if you don?t communicate or not following in the practice. Complications are rare and in our practice is about 1/10 of the national average. The patient decided to proceed with the lifestlyle program for now and she will consider the surgical option. 2.Nutritional counseling. Start with one premade PREMIER protein (buy at [employer] or [employer]) shake (mix 4oz of Premier mixed with 4oz low fat unsweetened almond milk) at 6am-8am, one protein bar (Fit Crunch protein bar, buy at [employer], or [employer]) at 9am-11am, another premade PREMIER protein shake (mix 4oz of Premier mixed with 4oz low fat unsweetened almond milk) at 12pm-2pm, another [employer] protein bar at 3pm-5pm,? dinner at 6pm (10 forks of protein and 10 forks of salad/vegetables) and one more premade PREMIER protein shake (mix 4oz of Premier mixed with 4oz low fat unsweetened almond milk) at 8pm-10pm So you do 3 protein shakes, 2 protein bars and one meal per day. Meal to include lean meat (beef, fish, pork, turkey, chicken), or bruneian yogurt, or egg whites, or beans with a salad with olive oil and fruits (berries, pears, apples, kiwi). Avoid salt, breads, potatoes, rice, pasta, desserts. 3. Each shake would be drunk slowly, like coffee in a period of 2 hours. 4. Cut each bar in 4 pieces and eat each piece in 30min ?to make each bar last 2 hours. 5. I emphasized the importance of measuring accurately the food portion and measure it when serving the food in plate 6. The meal portions include 10 full-size forks of meat and 10 full-size forks of salad. You always eat the meat portion but you can replace up to 5 forks for salad/vegetables with rice, potatoes or pasta, or a fruit ?if you like. The less you do it the better weight loss will be. 7. One full-size fork is what it can be scooped on the fork without falling aside and not what can be bit with the fork. Use regular forks like those you find in a typical restaurant. 8.? Please buy the body composition scale we discussed and send me weight measurements as soon as possible and then once a week. Always include your diet and exercise plan. 9. Start walking outside daily, tracking calories with a goal of 300 calories per day, daily. Goal is to burn 2000 calories per week on exercise, which means either 300 calories daily, or 400 calories 5 days per week, or 500 calories 4 days per week, or 650 calories 3 days per week. Use the [employer] jaswinder to track the calories of your walks. 10. The best choice would be to purchase a stationary bike, elliptical or treadmill at home that can track calories. Let me know if you do so I can give you an exercise plan. 11. Goal is to lose at least 1.5-2lbs per week 12. Goal to lose at least 10% of your weight, which is about 24lbs. Minimum weight goal: 240lbs 13. Please follow the diet plan exactly without any change. If you don't like something about the plan or you feel hungry you need to communicate with me so I can help you revise the plan. You should not change the plan yourself
[2025-04-20 08:31] VITALS: BMI 40.1
--- OUTSIDE RECORDS SUMMARY | 2025-04-20 08:49 | XMS_ITS | Clinical Summary ---
Author Organization [facility] Address [address] [facility] [address] [place] [address] Phone Care Team Providers Care Dental Technician Apprentice Name Role Phone Ernesto Carcamo Primary Care [...] on file Insurance ACO ACO [place] [address] [place] [address] [place] [address] [place] [address] [place] [address] [place] [address] ACO Care Teams Dental Technician Apprentice Relationship Specialty Start Date End Date Ernesto Carcamo PA [address] [place] [address] PCP - General 12/15/19 Additional Source Comments The information contained in this document represents components of the legal health record. It is not the complete legal health record.[facility]
--- OUTSIDE RECORDS SUMMARY | 2025-04-20 08:49 | XMS_ITS | Encounter Summary ---
Author Organization [facility] Address [address] [place] [phone] Phone Care Team Providers Care Automatic Print Developer Name Role Phone Ernesto Carcamo Primary Care Provider + Encounter Details Date Type Department Care Team (Late st Contact Info) Description 07/10/2020 Transcribe Orders [facility] Specimen Processing [address] [place] [address] Dru Myrick MD [address] [facility] [address] [place] [address] [email or web address] Epidural abscess (Primary Dx) Social History Tobacco [...] documented as of this encounter Care Teams Automatic Print Developer Relationship Specialty Start Date End Date Ernesto Carcamo PA [address] [place] [address] PCP - General 12/15/19 documented as of this encounter Additional Source Comments The information contained in this document represents components of the legal health record. It is not the complete legal health record.[facility]
== END 2025-04-20 08:58 | disposition home or self-care (01) ==
LOC: HO.HBS 08:06
PROVIDERS: Visit Provider Surgery
DX: E66.01 Morbid (severe) obesity due to excess calories (principal)
CPT/HCPCS: 99203

== ENCOUNTER 2025-04-22 09:41 | Outpatient (AMB) | payer OTHER, SELFPAY ==
[2025-04-22 09:43] VITALS: BP 111/64; PULSE 60; O2SAT 96; BMI 40.6
--- NOTE | 2025-04-22 09:43 | A.OFFVIS_ITS ---
Vital Signs 04/22/25 09:43 Height 5 ft 8 in Weight 267 lb BMI 40.6 BP 111/64 Blood Pressure Location Lt brachial Position Sitting Pulse 60 Pulse Oximetry (%) 96 Oxygen Delivery Method Room Air Intake Visit Reasons: Gastroesophageal reflux disease (GERD) Intake Note: Patient new consult for GERD Patient cc: acid reflux, soft stool/paste with bright red blood on ad off, abdominal bloating and discomfort, today she was with some d/c/ as coffee ground, sensation of been fullness all the time with poor appettite. 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 Referred by PCP for further evaluation of multiple GI symptoms. Patient presents with progressively worsening gastrointestinal symptoms since July, that she attributes to past prolonged antibiotics for spinal abscess requiring spinal surgery in December. Shares a notable increased stool frequency (5?6x/day) with widely variable consistency?ranging from pencil-thin to loose pond water stools and occasional constipation. She reports never feeling her bowels are fully evacuated and relates a constant urge to defecate, with minimal, transient relief after bowel movements. Associated features include persistent, dull, mid-abdominal aching pain and pronounced bloating, sometimes to the extent of abdominal distension resembling late . Bright red blood per rectum occurs multiple times weekly, mostly with wiping but at times observed in the toilet; on several recent occasions, small scattered amounts of dark coffee ground material were noted in stools. There is persistent, daily heartburn with regurgitation, and frequent episodes of nausea and gagging, though true emesis is rare. Over the last several months, she reports new-onset anorexia and ongoing unintentional reduction in meal size, though her significant weight loss (from 324 to 267 lbs) has otherwise been intentional. Tried elimination diets (gluten, milk), probiotics with prebiotics, OTC calcium carbonate, omeprazole, and more recently prescribed pantoprazole with minimal improvement. No current use of OTC analgesics. History notable for severe substance use disorder (cocaine, fentanyl, alcohol) now in 5 years of recovery; smokes cessation 2 years prior; therapy ongoing for PTSD; former methadone user, stopped 2 years ago. Past reproductive history includes traumatic vaginal delivery with perineal extension, raising question of post-surgical anorectal issues. Reports minimal fatty liver on prior imaging; previous upper GI workup for H. pylori >3 years ago, results unclear. Family h/o colorectal polyps in both parents. No personal or first-degree relative GI malignancy. No hx of IBD, celiac, or prior GI surgery. Patient denies: fever/chills, vomiting , dysphasia, unintentional wt loss. Social hx: -Diet: Actively restricting intake for weight loss; currently unable to tolerate breakfast/lunch due to anorexia; attempts bone broth/cottage cheese AM; uses cannabis gummies at night to stimulate intake; eliminated gluten/dairy without relief. -denies, ETOH cessation five year ag - Former polysubstance abuse (fentanyl, cocaine), cessation five years ago; cannabis gummies at night, denies other recreational drug use -former smoker, cessation 2 years ago - family hx as below -denies personal hx of CA -denies significant cardiopulmonary history -tolerated anesthesia in the past without difficulty. [facility] Medical History (Updated 04/22/25 @ 14:00 by Mimi Mckinney CNP) Bloody stool Asthma Morbid obesity Grief reaction MRSA infection Balance problem Spinal abscess Inguinal abscess Surgical History Hx of wisdom tooth extraction H/O Spinal surgery Family History Father Hypertension Obese Melanoma Psoriasis Mother Hypertension Obese Heart disease Diabetes COPD (chronic obstructive pulmonary disease) Social History Housing: House Alcohol intake: former Patient Tobacco Use Status: Former Tobacco user Tobacco use type: Cigarette e-Cigarette/Vaping Use: Never Used Second Hand Smoke Exposure: Yes service: No Current occupational status: employed 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 Current occupational exposures/hazards: No Cognitive needs: No Hearing needs: No Vision needs: Yes Review of Systems Const Reports as per HPI ENT Reports as per HPI Card Reports as per HPI Resp Reports as per HPI GI Reports as per HPI Reports as per HPI Physical Exam Vital Signs: Last Vital Signs Pulse 60 04/22/25 09:43 BP 111/64 04/22/25 09:43 Pulse Ox 96 04/22/25 09:43 Oxygen Delivery Method Room Air 04/22/25 09:43 BMI result Body Mass Index 40.6 Const General: healthy appearing, no acute distress and well developed Nutritional Appearance: obese Orientation/consciousness: patient oriented x3 HEENT Head: Yes normal to inspection, Yes normocephalic and Yes atraumatic Face and sinus: Yes normal facial exam Eyes General: appearance normal, both eyes and all related structures Neck Neck: Yes normal visual inspection Resp Effort & Inspection: normal respiratory effort, able to speak in complete sentences, no tracheal deviation and symmetric chest movement Cardio Jugular venous distension: no JVD GI Inspection: Yes normal to inspection and No distended Palpation (GI): Soft to palpation, not firm, nontender and No hepatosplenomegaly present Auscultation: Hypoactive bowel sounds present Neuro General: patient oriented x3 Gait exam (Neuro): Normal gait present Psych Appearance: grossly normal Mental Status: mental status grossly normal Speech and movement: Normal speech and movement present Affect: normal affect Attitude: cooperative Thought process: Normal thought process present Thought content: Normal thought content present Insight: Good insight present (Psych) Judgement: Good judgement present (Psych) Results Reviewed Results Reviewed: Date of Service: 11/27/24 Procedure(s): US abdomen complete Accession Number(s): [id number] cc: Rachael Painting CLINICAL HISTORY: R10.11 - Right upper quadrant pain US abdomen complete Comparison: 12/12/2021 Findings: The visualized pancreas is normal. The aorta and inferior vena cava are normal caliber. The appearance of the liver suggests fatty infiltration without focal lesion. There is no intrahepatic bile duct dilatation. The common duct is 3.9 mm in diameter. The gallbladder is normal. There is no sonographic Esparza sign. The main portal vein is antegrade. The right kidney is 12.0 cm in length. The left kidney is 11.1 cm in length. The spleen is normal. No ascites. IMPRESSION: 1. Hepatic steatosis. Assessment & Plan Assessment & Plan (1) Change in stool caliber: Code(s): R19.5 - Other fecal abnormalities Category: Medical Plan: Significant alteration in bowel pattern (frequency, caliber, consistency) with bright red blood, weight loss and anorexia, and both personal and family risk factors; new coffee ground-like specs (possible upper or lower GI source); ongoing nocturnal symptoms and lack of response to dietary interventions. Additional Testing: - Colonoscopy (ordered) - Stool studies (for inflammation, fecal WBC, ova/parasite, qualitative fat, infectious panel, H. pylori Ag) - CBC, CMP, celiac panel, CRP/ESR - CT abdomen/pelvis with oral/IV contrast (to assess for mass, inflammation, other anatomic abnormality) Medication Management: - Symptomatic: Imodium prn for diarrhea; fiber supplement (powder preferred) for constipation episodes; use as guided by predominant symptom Lifestyle Recommendations: - Continue high-fiber diet, adequate hydration; avoid triggers identified as aggravating; portion control as tolerated given appetite - Avoid irritating OTC meds (NSAIDs) Follow-Up: - Clinic return in 8 weeks (sooner if worsening rectal bleeding, weight loss, obstructive symptoms) (2) Acid reflux: Code(s): K21.9 - Gastro-esophageal reflux disease without esophagitis Category: Medical Qualifiers: Esophagitis presence: esophagitis presence not specified Qualified Code(s): K21.9 - Gastro-esophageal reflux disease without esophagitis Plan: Persistent daily heartburn with regurgitation, incomplete response to acid suppression, associated nausea; hx of prior extensive abx exposure; prior testing for H. pylori inconclusive Additional Testing: - H. pylori stool Ag (hold PPI x2 wks prior) - Upper endoscopy (ordered) Medication Management: - Hold pantoprazole/other PPIs for 1 week prior to stool test; resume post- sample collection - Continue Tums prn for breakthrough symptoms, as previously trialed - Consider switching or optimizing acid suppression regimen after objective data Lifestyle Recommendations: - Continue weight management efforts - Avoid late meals, known reflux triggers (spicy/fatty foods, caffeine, EtOH, tobacco?already abstinent) - Smaller, frequent meals as tolerated given anorexia and bloating Follow-Up: - Will reassess post-endoscopy and lab data review (3) Hepatic steatosis: Code(s): K76.0 - Fatty (change of) liver, not elsewhere classified Category: Medical Plan: Imaging-confirmed mild steatosis, normal LFTs, and negative impact mitigated through ongoing weight reduction Additional Testing: - Routine lab monitoring (LFTs, lipid panel) Medication Management: - None at present Lifestyle Recommendations: - Continue gradual weight loss, maintain regular aerobic activity, manage dyslipidemia per PCP Follow-Up: - Via primary care unless GI-specific concern develops Plan Follow-up 8 weeks or sooner as needed Time: I spent a total of 45 minutes on the date of encounter which includes: Preparing to see the patient (reviewed previous documentation, test results and medical history) Performing a medically appropriate exam and/or evaluation Ordering medications, tests, and procedures Documenting clinical information in the health record Orders: Orders Calprotectin, Fecal Today R19.5 - Other fecal abnormalities C Reactive Protein Today R19.5 - Other fecal abnormalities Transglutaminase IgA Today R19.5 - Other fecal abnormalities Ova and Parasite Today R19.5 - Other fecal abnormalities Leukocytes Stool Qualitative Today R19.5 - Other fecal abnormalities Fecal Fat Qualitative Today R19.5 - Other fecal abnormalities H pylori Ag Stool Today R19.5 - Other fecal abnormalities GI Panel Today R19.5 - Other fecal abnormalities CDiff Gene PCR Today R19.5 - Other fecal abnormalities CT abdomen pelvis w IV con Today K21.9 - Gastro-esophageal reflux disease without esophagitis, K92.1 - Melena, R14.0 - Abdominal distension (gaseous), R19.5 - Other fecal abnormalities Referrals GI Procedure Notification K21.9 - Gastro-esophageal reflux disease without esophagitis, K92.1 - Melena, R19.5 - Other fecal abnormalities Coding Level of Care Code New Pt New Pt Level 4 (86127) Patient Type New Diagnoses Change in stool caliber R19.5 Gastroesophageal reflux disease, unspecified whether esophagitis present K21.9 Esophagitis presence: esophagitis presence not specified Hepatic steatosis K76.0
--- OUTSIDE RECORDS SUMMARY | 2025-04-22 11:47 | XMS_ITS | Clinical Summary ---
Author Organization [facility] Address [address] [place] [phone] Phone Care Team Providers Care Brain Surgeon Name Role Phone Ernesto Carcamo Primary Care [...] on file Insurance [employer] [place] [address] [place] [address] [place] [address] [place] [address] [place] [address] [place] [address] ACO Care Teams Brain Surgeon Relationship Specialty Start Date End Date Ernesto Carcamo PA [address] [place] [address] PCP - General 12/15/19 Additional Source Comments The information contained in this document represents components of the legal health record. It is not the complete legal health record.[facility]
--- OUTSIDE RECORDS SUMMARY | 2025-04-22 11:47 | XMS_ITS | Encounter Summary ---
Author Organization [facility] Address [address] [place] [phone] Phone Care Team Providers Care Assistant Plant Control Operator Name Role Phone Ernesto Carcamo Primary Care Provider + Encounter Details Date Type Department Care Team (Late st Contact Info) Description 07/10/2020 Transcribe Orders [facility] Specimen Processing [address] [place] [address] Dru Myrick MD [address] [facility] [address], [address] [place] [address] [email or web address] Epidural abscess (Primary Dx) Social History Tobacco [...] documented as of this encounter Care Teams Assistant Plant Control Operator Relationship Specialty Start Date End Date Ernesto Carcamo PA [address] [place] [address] PCP - General 12/15/19 documented as of this encounter Additional Source Comments The information contained in this document represents components of the legal health record. It is not the complete legal health record.[facility]
== END 2025-04-22 10:31 | disposition home or self-care (01) ==
LOC: HO.HGI 09:42
PROVIDERS: Visit Provider Nurse Practitioner Family
DX: R19.5 Other fecal abnormalities (principal); K21.9 Gastro-esophageal reflux disease without esophagitis; K76.0 Fatty (change of) liver, not elsewhere classified
CPT/HCPCS: 99204